=== PATIENT | female | born 1980 | race Caucasian/White ===

== ENCOUNTER 2017-01-10 20:49 | Emergency (ER) | payer OTHER ==
[~2017-01-10] VITALS: Ht 162.6 cm; Wt 66.5 kg
[~2017-01-10 20:49] MED LIST: CEPH-443 PO; IBUP-1542 PO
[2017-01-10 20:51] VITALS: Ht 162.6 cm; Wt 66.5 kg
[2017-01-10 21:54] LABS: URINE BLOOD (Dip) POC Negative (NEGATIVE)
--- NOTE | 2017-01-10 21:55 | ERA ---
ER Documentation Chief Complaint Date/Time DATE: 01/10/17 TIME: 21:53 Chief Complaint 14 wks , pelvic pain radaiting to back today, denies bleeding HPI This is a otherwise healthy 36-year-old female presenting 16 weeks with pelvic pain and no bleeding. Has not taken any medications to relieve the symptoms. Has not had symptoms like this in her previous pregnancies. Denies any medical conditions or previous complications with the . Denies bleeding, fever, dysuria, nausea, vomiting, diarrhea, vaginal discharge, foul odor, change in fetus quickening, or identifiable patterns of symptoms. ROS All systems reviewed and are negative except as per history of present illness. Medications Home Meds Active Scripts Ibuprofen* (Ibuprofen*) 600 Mg Tablet, 600 MG PO Q6, #30 TAB Prov:SANDRA MORTENSEN PA-C 08/07/15 Cephalexin* (Keflex*) 500 Mg Capsule, 500 MG PO TID for 5 Days, CAP Prov:SUSAN SULLIVAN PA-C 12/29/14 Allergies Allergies: Coded Allergies: No Known Drug Allergy (Verified Allergy, Unknown, 02/08/08) PMhx/Soc History of Surgery: No Hx Neurological Disorder: No Hx Respiratory Disorders: No Hx Cardiac Disorders: No Hx Psychiatric Problems: No Hx Miscellaneous Medical Probl: No Hx Alcohol Use: No Hx Substance Use: No Hx Tobacco Use: No Smoking Status: Never smoker Physical Exam Vitals Vital Signs Date Time Temp Pulse Resp B/P Pulse Ox O2 Delivery O2 Flow Rate FiO2 01/10/17 20:51 97.7 82 20 120/67 100 Physical Exam Physical Const: Healthy-appearing. Well-nourished. Well-developed. No acute distress. Abd: Nontender pelvic area. Fundus palpated just above the umbilicus. Soft, non tender, non distended. No guarding, masses. Normal bowel sounds. No McBurney's point tenderness. Head: Normocephalic, Atraumatic. No sinus tenderness. Eyes: Non-injected; No scleral erythema, discharge or foreign body. EOMI and RONEN bilaterally. Ears: Normal External Ears, EACs clear, TM normal bilaterally without erythema. Nose: Normal nose without discharge, septal deviation, or sinus tenderness. Oral: No oral edema visualized. Mucous membranes moist and pink. Neck: No cervical lymphadenopathy, masses or goiter palpated. Full range of motion. Supple. Trachea midline. ~ No meningismus. Pulm: Good air movement in upper and lower respiratory tracts. No dyspnea, stridor, tripoding or drooling. Clear to auscultation bilaterally. Percussion unremarkable in all lung villalobos bilaterally. Cardio: Regular rate and rhythm; No murmurs, gallops or rubs auscultated. No JVD grossly observed. Radial and posterior tibial pulses 2+ bilaterally. No cyanosis. Capillary refill less than 2 seconds. MS: Normal motor strength, normal tone with gross examination. Skin: No petechiae or rashes. No ulcer, induration, jaundice. Good turgor. Back: No midline, flank or CVA tenderness. Ext: No cyanosis, edema or palpable cord. Normal movement of all extremities grossly observed. Neur: Awake, alert and oriented x3. Neurovascularly intact bilaterally. Psych: Active and alert. Normal Mood and Affect. Oriented x3. Result Diagram: 01/10/178 Results 24 hrs Laboratory Tests Test 01/10/17 21:53 01/10/17 21:58 01/10/17 22:07 Urine Color YELLOW Urine Clarity CLEAR Urine pH 5.0 Urine Specific [place] 1.028 Urine Ketones NEGATIVEmg/dL Urine Nitrite NEGATIVEmg/dL Urine Bilirubin NEGATIVEmg/dL Urine Urobilinogen 1+mg/dL Urine Leukocyte Esterase NEGATIVELeu/ul Urine Hemoglobin NEGATIVEmg/dL Urine Glucose 2+mg/dL Urine Total Protein NEGATIVEmg/dl Bedside Urine pH (LAB) 6.0 Bedside Urine Protein (LAB) Negative Bedside Urine Glucose (UA) 0.1% Bedside Urine Ketones (LAB) Negative Bedside Urine Blood Negative Bedside Urine Nitrite (LAB) Negative Bedside Urine Leukocyte Esterase (L Negative White Blood Count 7.410^3/ul Red Blood Count 3.6810^6/ul Hemoglobin 11.0g/dl Hematocrit 31.7% Mean Corpuscular Volume 86.1fl Mean Corpuscular Hemoglobin 29.9pg Mean Corpuscular Hemoglobin Concent 34.7g/dl Red Cell Distribution Width 13.6% Platelet Count 07966^3/UL Mean Platelet Volume 9.8fl Neutrophils % 60.8% Lymphocytes % 30.2% Monocytes % 7.0% Eosinophils % 1.4% Basophils % 0.3% Nucleated Red Blood Cells % 0.0/100WBC Neutrophils # 4.510^3/ul Lymphocytes # 2.210^3/ul Monocytes # 0.510^3/ul Eosinophils # 0.110^3/ul Basophils # 0.010^3/ul Nucleated Red Blood Cells # 0.010^3/ul Beta HCG, Quantitative 89449.0mIU/ml Current Medications Medications (Trade) Dose Ordered Sig/Ernie Route PRN Reason Start Time Stop Time Status Last Admin Dose Admin Acetaminophen (Tylenol Tab) 650 mg ONCE ONCE PO 01/10/17 22:00 01/10/17 22:01 DC 01/10/17 22:47 Procedures/MDM 16 weeks 36-year-old female patient is being evaluated and worked up for pelvic pain as described in the history and physical exam. My current differential diagnosis includes, but is not limited to, the following: pelvic inflammatory disease or other infection, nephrolithiasis, urinary tract infection, , placenta previa, vaginitis, etc. Patient was given 650 mg of acetaminophen p.o. The workup included CBC, CMP, type and screen, quantitative beta-hCG, urinalysis , urine culture, and an US. Labs and urine were unremarkable and showed no signs of infection. The US was read by the radiologist and given the following impression: IMPRESSION: 1. Single viable intrauterine gestation estimated at 14 weeks 2 days with the estimated date of delivery 07/09/2017. 2. Posterior grade 0 placenta without evidence of abruption. 3. Sonographically normal ovaries and adnexa. At this time, I have little suspicion for complete , inevitable , ectopic , placenta previa, infection, blood vessel rupture, or PPROM. The current most likely diagnosis is pelvic pain of unknown etiology with no threatening of the fetus at this time. I have spoke with the patient regarding their condition and future management. They have verbally responded that they understand their status and treatment plan. The patients vitals are stable, and their current condition is appropriate for discharge. The patient will be given discharge instructions with return precautions. Departure Diagnosis: Primary Impression: Pelvic pain complicating Condition: Stable Additional Instructions: Follow up with your [facility] in 2 days. Be sure to take todays test results ( provided within this packet) with you to your doctors appointment in 2 days. If you do not have an [facility], a handout of locations with contact information will be provided to you. Follow all the recommendations we have previously discussed and the following written recommendations: If symptoms change or worsen, return to the emergency department immediately. Do not put anything in your vagina. Do not have sex, douche, or use tampons; these actions may increase your risk for infection and miscarriage. Rest as directed. Do not exercise or engage in strenuous activities; such activities may cause labor or miscarriage. If you have any further questions, ask before you leave the hospital, or contact the medical provider managing your . CAROLYN BRADSHAW PA-C Jan 10, 2017 21:55
[2017-01-10] MEDS ORDERED: ACETAMINOPHEN 325 MG TAB PO ONE (22:00)
[2017-01-10 22:13] LABS: ADD SCAN DIFF NO
[2017-01-10 22:15] LABS: BASOPHILS % 0.3 % (0.0-2.0); EOSINOPHILS # 0.1 10^3/ul (0.0-0.5); EOSINOPHILS % 1.4 % (0.0-7.0); HEMATOCRIT 31.7 % (37.0-47.0); LYMPHOCYTES # 2.2 10^3/ul (0.8-2.9); LYMPHOCYTES % 30.2 % (15.0-51.0); MEAN CORPUSCULAR HEMOGLOBIN 29.9 pg (29.0-33.0); MEAN CORPUSCULAR HGB CONC 34.7 g/dl (32.0-37.0); MEAN CORPUSCULAR VOLUME 86.1 fl (82.0-101.0); MEAN PLATELET VOLUME 9.8 fl (7.4-10.4); MONOCYTE # 0.5 10^3/ul (0.3-0.9); NEUTROPHIL # 4.5 10^3/ul (1.6-7.5); NEUTROPHILS % 60.8 % (39.0-77.0); PLATELET COUNT 144 10^3/UL (140-415); RED BLOOD COUNT 3.68 10^6/ul (4.20-5.40); RED CELL DISTRIBUTION WIDTH 13.6 % (11.5-14.5); WHITE BLOOD COUNT 7.4 10^3/ul (4.8-10.8)
[2017-01-10 22:58] LABS: ADD UMIC NO; UR ASCORBIC ACID NEGATIVE (NEGATIVE); UR BILIRUBIN (Dip) NEGATIVE (NEGATIVE); UR BLOOD (Dip) NEGATIVE (NEGATIVE); UR CLARITY CLEAR (CLEAR); UR COLOR YELLOW (YELLOW); UR GLUCOSE (Dip) 2+ mg/dL (NEGATIVE); UR KETONES (Dip) NEGATIVE (NEGATIVE); UR LEUKOCYTE ESTERASE (Dip) NEGATIVE Leu/ul (NEGATIVE); UR NITRITE (Dip) NEGATIVE (NEGATIVE); UR SPECIFIC GRAVITY (Dip) 1.028 (1.003-1.030); UR TOTAL PROTEIN (Dip) NEGATIVE (NEGATIVE); UR UROBILINOGEN (Dip) 1+ mg/dL (NEGATIVE)
--- NOTE | 2017-01-10 23:12 | RADRPT ---
PROCEDURE: Obstetrical ultrasound greater than 14 weeks CLINICAL INDICATION: Pelvic pain TECHNIQUE: Real time sonographic imaging of the gravid uterus is performed transabdominally and mu ltiple static ribeiro scale and Doppler images are submitted for review as are measurements. The image s are reviewed on the PACS. COMPARISON: No relevant exams are available FINDINGS: There is a single living intrauterine gestation in variable presentation. The heart beat is e stimated at 150 bpm. The measurements are as follows: BPD:2.42 cm HC:9.09 cm AC:8.34 cm FL:1.41 cm Estimated gestational age is 14 weeks 2 days. The estimated date of delivery is 07/09/2017. The estimated weight is 96 grams. Placenta is posterior and grade 0. There is no evidence of placenta previa or abruption. The amniotic fluid is normal, the maximum vertical pocket estimated at 3.4 cm. Right ovarian size is normal measuring 2.9 x 2.6 x 1.7 cm demonstrating normal Doppler blood flow an d without evidence of right adnexal mass. Left ovarian size is normal measuring 2.7 x 1.9 x 1.7 cm demonstrating normal Doppler blood flow and without evidence of left adnexal mass. No evidence of free fluid RPTAT:HJJR IMPRESSION: 1. Single viable intrauterine gestation estimated at 14 weeks 2 days with the estimated date of deli very 07/09/2017. 2. Posterior grade 0 placenta without evidence of abruption. 3. Sonographically normal ovaries and adnexa. Physician Guy Date Time Electronically viewed and signed by Physician Guy on 01/10/2017 23:11 /
[2017-01-11 01:20] VITALS: BP 104/59; PULSE 67; RESP 16
== END 2017-01-11 01:22 | disposition home or self-care (01) ==
LOC: FTE 20:49
DX: O26.892 Other specified pregnancy related conditions, second trimester (principal); R10.2 Pelvic and perineal pain; Z3A.14 14 weeks gestation of pregnancy
CPT/HCPCS: 76805; 81003; 84702; 85025; 86900; 86901

== ENCOUNTER 2017-02-05 23:09 | Emergency (ER) | payer SELFPAY ==
[~2017-02-05] VITALS: Ht 154.9 cm; Wt 68.0 kg
[2017-02-05 23:29] VITALS: Ht 154.9 cm; Wt 68.0 kg
== END 2017-02-06 01:50 | disposition left against medical advice (07) ==
LOC: FTE 23:09
DX: Z53.21 Procedure and treatment not carried out due to patient leaving prior to being seen by health care provider (principal)

== ENCOUNTER 2017-02-09 23:38 | Emergency (ER) | payer OTHER ==
[~2017-02-09] VITALS: Ht 154.9 cm; Wt 68.5 kg
[2017-02-09 23:45] VITALS: Ht 154.9 cm; Wt 68.5 kg
[2017-02-10] MEDS ORDERED: ACETAMINOPHEN 325 MG TAB PO STA (03:22)
[2017-02-10] MEDS ORDERED: SOD CHLORIDE 0.9% 1,000 ML IV STA (03:22)
--- NOTE | 2017-02-10 04:20 | RADRPT ---
PROCEDURE: US OB. CLINICAL INDICATION: Vaginal bleeding, . Clinical estimate gestational age is 18 weeks 1 day with estimated date of delivery 07/13/2017. TECHNIQUE: Multiple sonographic images of the pelvis were obtained. The images were reviewed on a PACS workstation. COMPARISON: 01/10/2017 FINDINGS: There is a single live intrauterine gestation. Cardiac activity is present with 134 beats per minut e. There is a cephalic position. Measurements were made in order to determine age. The results are as follows: BPD =4.22 cm, 18 weeks 5 days HC =15.36 cm, 18 weeks 2 days AC =13.43 cm, 18 weeks 6 days FL =2.61 cm, 18 weeks 0 days. Estimated gestational age of approximately 18 weeks 3 days. The estimated date of delivery is 07/11/2017. The EFW = 240 g, 0 pounds 8 ounces, 64% . The placenta is posterior and grade 0. There is no evidence for an abruption. There is a normal amount of amniotic fluid with and maximum vertical pocket of 5 cm. IMPRESSION: Single live intrauterine gestation of approximately 18 weeks 3 days based on ultrasound measurements . The estimated date of delivery is 07/11/2017 . RPTAT: HJES .Herminio Tinoco MD, Date Time Electronically viewed and signed by .Herminio Tinoco MD, on 02/10/2017 04:19 .S/
[2017-02-10 04:47] LABS: BASOPHILS % 0.3 % (0.0-2.0); EOSINOPHILS # 0.1 10^3/ul (0.0-0.5); EOSINOPHILS % 1.5 % (0.0-7.0); HEMOGLOBIN 11.5 g/dl (12.0-16.0); LYMPHOCYTES # 2.7 10^3/ul (0.8-2.9); LYMPHOCYTES % 34.2 % (15.0-51.0); MEAN CORPUSCULAR HEMOGLOBIN 30.4 pg (29.0-33.0); MEAN CORPUSCULAR HGB CONC 34.8 g/dl (32.0-37.0); MEAN CORPUSCULAR VOLUME 87.3 fl (82.0-101.0); MEAN PLATELET VOLUME 10.8 fl (7.4-10.4); MONOCYTE # 0.6 10^3/ul (0.3-0.9); MONOCYTES % 7.1 % (0.0-11.0); NEUTROPHIL # 4.5 10^3/ul (1.6-7.5); NEUTROPHILS % 56.5 % (39.0-77.0); PLATELET COUNT 149 10^3/UL (140-415); RED BLOOD COUNT 3.78 10^6/ul (4.20-5.40); RED CELL DISTRIBUTION WIDTH 13.8 % (11.5-14.5); WHITE BLOOD COUNT 7.9 10^3/ul (4.8-10.8)
[2017-02-10 05:03] LABS: ADD UMIC YES; UR ASCORBIC ACID NEGATIVE (NEGATIVE); UR BILIRUBIN (Dip) NEGATIVE (NEGATIVE); UR BLOOD (Dip) 2+ mg/dL (NEGATIVE); UR CLARITY SLIGHTLY CLOUDY (CLEAR); UR COLOR YELLOW (YELLOW); UR GLUCOSE (Dip) NEGATIVE (NEGATIVE); UR KETONES (Dip) NEGATIVE (NEGATIVE); UR LEUKOCYTE ESTERASE (Dip) NEGATIVE Leu/ul (NEGATIVE); UR MUCUS MANY /HPF (NONE SEEN); UR NITRITE (Dip) NEGATIVE (NEGATIVE); UR RBC 1 /HPF (0-5); UR SPECIFIC GRAVITY (Dip) 1.024 (1.003-1.030); UR SQUAMOUS EPITHELIAL CELL FEW /HPF (FEW); UR TOTAL PROTEIN (Dip) NEGATIVE (NEGATIVE); UR UROBILINOGEN (Dip) 1+ mg/dL (NEGATIVE)
--- NOTE | 2017-02-10 05:41 | ERD ---
ER Documentation Chief Complaint Date/Time DATE: 02/10/17 TIME: 05:34 Chief Complaint vaginal bleeding x 4 days, states 18 weeks HPI This 18 week female 3 miscarriage reports vaginal bleeding pelvic pain with clots. She reports symptoms started 4 days ago, seen and treated at [facility] reports normal ultrasound findings, patient was told to follow-up with gynecology, patient states she called her assistant golf professional the following day who instructed her if symptoms continue to come to emergency department. Patient reports that symptoms have worsened. ROS All systems reviewed and are negative except as per history of present illness. Medications Home Meds Active Scripts Ibuprofen* (Ibuprofen*) 600 Mg Tablet, 600 MG PO Q6, #30 TAB Prov:SANDRA MORTENSEN PA-C 08/07/15 Cephalexin* (Keflex*) 500 Mg Capsule, 500 MG PO TID for 5 Days, CAP Prov:SUSNA SULLIVAN PA-C 12/29/14 Allergies Allergies: Coded Allergies: No Known Drug Allergy (Verified Allergy, Unknown, 02/09/17) PMhx/Soc Medical and Surgical Hx: pt denies Medical Hx, pt denies Surgical Hx History of Surgery: No Anesthesia Reaction: No Hx Neurological Disorder: No Hx Respiratory Disorders: No Hx Cardiac Disorders: No Hx Psychiatric Problems: No Hx Miscellaneous Medical Probl: No Hx Alcohol Use: No Hx Substance Use: No Hx Tobacco Use: No Physical Exam Vitals Vitals stable, triage notes reviewed Physical Exam Const: Well-appearing, well-hydrated, no acute Head: Atraumatic Eyes: Normal Conjunctiva, PERRLA, EOMI ENT: Normal External Ears, Nose and Mouth mucous membranes moist. Neck: Full range of motion..~ No meningismus. Resp: Respirations even and unlabored no respiratory distress Cardio: Abd: 's abdomen Back: Ext: Neur: Awake and alert Psych: Normal Mood and Affect Result Diagram: 02/10/17 0345 Results 24 hrs Laboratory Tests Test 02/10/17 03:40 02/10/17 03:45 Urine Color YELLOW Urine Clarity SLIGHTLY CLOUDY Urine pH 5.0 Urine Specific [place] 1.024 Urine Ketones NEGATIVEmg/dL Urine Nitrite NEGATIVEmg/dL Urine Bilirubin NEGATIVEmg/dL Urine Urobilinogen 1+mg/dL Urine Leukocyte Esterase NEGATIVELeu/ul Urine Microscopic RBC 1/HPF Urine Microscopic WBC 2/HPF Urine Squamous Epithelial Cells FEW/HPF Urine Mucus MANY/HPF Urine Hemoglobin 2+mg/dL Urine Glucose NEGATIVEmg/dL Urine Total Protein NEGATIVEmg/dl White Blood Count 7.910^3/ul Red Blood Count 3.7810^6/ul Hemoglobin 11.5g/dl Hematocrit 33.0% Mean Corpuscular Volume 87.3fl Mean Corpuscular Hemoglobin 30.4pg Mean Corpuscular Hemoglobin Concent 34.8g/dl Red Cell Distribution Width 13.8% Platelet Count 19432^3/UL Mean Platelet Volume 10.8fl Neutrophils % 56.5% Lymphocytes % 34.2% Monocytes % 7.1% Eosinophils % 1.5% Basophils % 0.3% Nucleated Red Blood Cells % 0.0/100WBC Neutrophils # 4.510^3/ul Lymphocytes # 2.710^3/ul Monocytes # 0.610^3/ul Eosinophils # 0.110^3/ul Basophils # 0.010^3/ul Nucleated Red Blood Cells # 0.010^3/ul Beta HCG, Quantitative 16298.0mIU/ml Current Medications Medications (Trade) Dose Ordered Sig/Ernie Route PRN Reason Start Time Stop Time Status Last Admin Dose Admin Sodium Chloride (NS) 1,000 ml @ 1,000 mls/hr Q1H STAT IV 02/10/17 03:22 02/10/17 04:21 DC 02/10/17 03:49 Acetaminophen (Tylenol Tab) 650 mg ONCE STAT PO 02/10/17 03:22 02/10/17 03:25 DC 02/10/17 03:33 Interpretation text CBC shows no evidence of hemorrhage or infection Urinalysis negative for evidence of infection . Procedures/MDM PROCEDURE: US OB. CLINICAL INDICATION: Vaginal bleeding, . Clinical estimate gestational age is 18 weeks 1 day with estimated date of delivery 07/13/2017. TECHNIQUE: Multiple sonographic images of the pelvis were obtained. The images were reviewed on a PACS workstation. COMPARISON: 01/10/2017 FINDINGS: There is a single live intrauterine gestation. Cardiac activity is present with 134 beats per minute. There is a cephalic position. Measurements were made in order to determine age. The results are as follows: BPD = 4.22 cm, 18 weeks 5 days HC = 15.36 cm, 18 weeks 2 days AC = 13.43 cm, 18 weeks 6 days FL = 2.61 cm, 18 weeks 0 days. Estimated gestational age of approximately 18 weeks 3 days. The estimated date of delivery is 07/11/2017. The EFW = 240 g, 0 pounds 8 ounces, 64% . The placenta is posterior and grade 0. There is no evidence for an abruption. There is a normal amount of amniotic fluid with and maximum vertical pocket of 5 cm. IMPRESSION: Single live intrauterine gestation of approximately 18 weeks 3 days based on ultrasound measurements. The estimated date of delivery is 07/11/2017 . RPTAT: HJES .Herminio Tinoco MD, MD Date Time Electronically viewed and signed by .Herminio Tinoco MD, MD on 02/10/2017 04:19 This 36-year-old female presents to emergency department for vaginal bleeding and clotting worsening over the last 4 days. Patient was seen and treated at [facility], patient states she was told ultrasound was normal as well as urinalysis. Patient followed up with a phone call to assistant golf professional who instructed her to return to emergency department for any change in symptoms. Patient is here today for increased bleeding, clots, and pain. Threatened miscarriage, OB ultrasound performed documenting: There is a single live intrauterine gestation. Cardiac activity is present with 134 beats per minute. There is a cephalic position. Estimated 18 weeks 3 days based on ultrasound measurements, beta quant 95922.0 this is normal for 18 weeks of . Patient will be discharged home instructions to follow-up with OB today. Tylenol as needed for cramping. I feel the patient is stable for discharge at this time. I have discussed results, examination findings, the treatment plan with the patient and family present prior to discharge. Indications for emergent reevaluation, side effects of medication were also discussed. All questions were answered. Patient verbalizes understanding and agrees with plan of care. Departure Diagnosis: Primary Impression: Vaginal bleeding in patient at less than 20 weeks gestation Additional Instructions: Thank you for for coming to [facility] for your care today. Please ask your nurse or provider if you have questions about your care today and do not leave until all your questions have been answered. Please use any medications given as directed and follow-up with your doctor (or the doctor you were referred to) in the next 2-3 days. If you do not have a primary care doctor [place] [facility] [place] You may also use motrin and tylenol as needed for fever and/or pain unless instructed otherwise by your provider or nurse. Indications for more urgent follow-up have been discussed, but you may return to the Emergency Department at ANY time for any worrisome or worsening symptoms. If you have abdominal pain, please know that no test or exam you received is perfect and you should follow up within 8 hours for continued pain. If you had any imaging studies today, such as an X-Ray or CT Scan, these studies will be reviewed later by a radiologist. You will be called if there are important findings that were not identified today, so make sure the contact information you provided at registration is correct. If you received any narcotic pain control medicine today, such as Vicodin, Morphine or Dilaudid, your coordination and judgment may be affected for a number of hours. Please do not drive or operate heavy machinery, and you may want someone to assist you at home. If you were given a prescription for narcotic medication, be aware that it is very addictive- use sparingly and only if necessary. MARCO LEONG Feb 10, 2017 05:41
== END 2017-02-10 06:55 | disposition home or self-care (01) ==
LOC: FTE 23:38
DX: O20.9 Hemorrhage in early pregnancy, unspecified (principal); R10.2 Pelvic and perineal pain; Z3A.18 18 weeks gestation of pregnancy
CPT/HCPCS: 36415; 76801; 81001; 84702; 85025; J7030; Z7502

== ENCOUNTER 2017-03-01 21:20 | Outpatient (CLI) | payer OTHER ==
[~2017-03-01] VITALS: Ht 154.9 cm; Wt 69.8 kg
[2017-03-01 23:02] VITALS: Ht 154.9 cm; Wt 69.8 kg
[2017-03-01 23:04] VITALS: BP 119/57; PULSE 81; RESP 18
[2017-03-01] MEDS ORDERED: FERR325C PO (23:08)
[2017-03-01] MEDS ORDERED: PRENAT PO (23:08)
[2017-03-01] MEDS ORDERED: DOCU-144 PO (23:09)
[2017-03-01 23:27] LABS: ADD UMIC NO; UR ASCORBIC ACID NEGATIVE (NEGATIVE); UR BILIRUBIN (Dip) NEGATIVE (NEGATIVE); UR BLOOD (Dip) NEGATIVE (NEGATIVE); UR CLARITY SLIGHTLY CLOUDY (CLEAR); UR COLOR STRAW (YELLOW); UR GLUCOSE (Dip) 1+ mg/dL (NEGATIVE); UR KETONES (Dip) NEGATIVE (NEGATIVE); UR LEUKOCYTE ESTERASE (Dip) NEGATIVE Leu/ul (NEGATIVE); UR NITRITE (Dip) NEGATIVE (NEGATIVE); UR RBC 0 /HPF (0-5); UR SPECIFIC GRAVITY (Dip) 1.008 (1.003-1.030); UR SQUAMOUS EPITHELIAL CELL FEW /HPF (FEW); UR TOTAL PROTEIN (Dip) NEGATIVE (NEGATIVE); UR UROBILINOGEN (Dip) NEGATIVE (NEGATIVE)
--- NOTE | 2017-03-01 23:37 | RADRPT ---
PROCEDURE: Limited OB ultrasound CLINICAL INDICATION: 36-year-old female. History of low-lying placenta. Evaluate amniotic fluid. TECHNIQUE: Sonographic evaluation to assess the amniotic fluid index was performed. Transabdomina l imaging of the gravid uterus was performed. COMPARISON: None. FINDINGS: Estimated due date July 13, 2017 Gestational age by JIMI 20 weeks 6 days A single live intrauterine in cephalic presentation is identified. The heart rate me asures 139 bpm. Amniotic fluid volume is normal. Maximum vertical pocket measures 7.5 cm. There is a posterior placenta, grade 0. Homogeneously echogenic. Inferior tip of placenta is 1.3 cm from internal os of cervix. Cervix is long and closed measuring 4 cm without internal funneling. IMPRESSION: Single live intrauterine in cephalic presentation. Normal amniotic fluid volume. Cervix is long and closed. Posterior low-lying placenta. Inferior tip of placenta is 1.3 cm from internal os of cervix. Recom mend repeat evaluation at approximately 27 weeks gestation. RPTAT: HCTS Physician Sarahy Date Time Electronically viewed and signed by Physician Sarahy on 03/01/2017 23:37 CS/
--- NOTE | 2017-03-02 03:02 | RADRPT ---
PROCEDURE: US OB. CLINICAL INDICATION: Pain. TECHNIQUE: Multiple sonographic images of the pelvis were obtained. Transabdominal imaging only w as performed. The images were reviewed on a PACS workstation. COMPARISON: 02/10/2017. FINDINGS: Single live intrauterine is identified. Cardiac activity is present with 131 beats per mi nute. There is a vertex presentation. Measurements: BPD = 21 weeks 5 days. HC = 21 weeks 4 days. AC = 21 weeks 4 days. FL = 21 weeks 0 days. Estimated gestational age of approximately 21 weeks 3 days. The estimated date of delivery is 07/10/2017. The EFW = 418 g which is at the 64th percentile. Limited evaluation of anatomy is without gross abnormality. The placenta is posterior. IMPRESSION: Single live intrauterine gestation of approximately 21 weeks 3 days. RPTAT: HMVK .Tian Bland MD, Date Time Electronically viewed and signed by .Tian Bland MD, on 03/02/2017 03:01 .K/
--- NOTE | 2017-03-02 03:41 | HP ---
Date/Time of Note Date/Time of Note DATE: 03/02/17 TIME: 03:39 OB - History Hx of Present Free Text/Dictation @20+wsk GA with lower abdominal pain Decreased appetite : 5 Para: 2 Care: Good Care Ultrasounds: Normal mid trimester US Obstetrical Complications: None Medical Complications: None Past Family/Social History * Past Medical, Surgical, Family and Obstetric Histories reviewed from chart. OB Admission Exam Vital Signs Vital Signs Vital Signs Date Time Temp Pulse Resp B/P Pulse Ox O2 Delivery O2 Flow Rate FiO2 03/01/17 23:04 98.1 81 18 119/57 Room Air Physical Exam Abdomen: Abnormal (lower abdominal tenderness) Extremities: Normal Effacement: 0% Membranes: Intact Heart Rate: 140's OB Assessment/Plan Reason for admission: observation Plan: Expectant Management Other plan: 1,Labs CBC and CMP 2.IV hydration 3.Abdominal ultrasound for R/o Appendicitis 4.Close Observation JOVANY ARECHIGA M.D. Mar 02, 2017 03:41
--- NOTE | 2017-03-02 04:25 | PN ---
Triage Information Date/Time Reason for visit: Abd/pelvic pain Weeks of Gestation 20 /Para 3/1 Objective Vital Signs Date Time Temp Pulse Resp B/P Pulse Ox O2 Delivery O2 Flow Rate FiO2 03/01/17 23:04 98.1 81 18 119/57 Room Air Heart Rate: 120's Results/Medications Results 24 hrs Laboratory Tests Test 03/01/17 22:29 03/01/17 22:50 Membranes Rupture NEGATIVE Urine Color STRAW Urine Clarity SLIGHTLY CLOUDY A Urine pH 7.0 Urine Specific [place] 1.008 Urine Ketones NEGATIVE Urine Nitrite NEGATIVE Urine Bilirubin NEGATIVE Urine Urobilinogen NEGATIVE Urine Leukocyte Esterase NEGATIVE Urine Microscopic RBC 0 Urine Microscopic WBC 1 Urine Squamous Epithelial Cells FEW Urine Hemoglobin NEGATIVE Urine Glucose 1+ H Urine Total Protein NEGATIVE Disposition: awaiting CBC, and U/S of abdomen and d/c home after the results come back in the morning. ANTHONY GOMEZ MD Mar 02, 2017 04:25
--- NOTE | 2017-03-02 07:50 | RADRPT ---
PROCEDURE: Right Upper Quadrant Ultrasound. CLINICAL INDICATION: abdominal pain TECHNIQUE: Multiple real-time images were acquired of the patient's right upper quadrant abdomen a nd retroperitoneum utilizing a high resolution transducer. COMPARISON: None FINDINGS: The liver measures 16.6 cm, and demonstrates mildly increased echogenicity. The main portal vein is patent with proper directional flow. There is no intrahepatic biliary ductal dilatation. The extrahe patic common bile duct measures 4 mm. The gallbladder is without stones, wall thickening, or pericholecystic fluid. The visualized pancreas is unremarkable. The right kidney measures 10.1 cm and demonstrates normal echotexture. There is mild right hydroneph rosis. The visualized abdominal aorta and IVC are grossly unremarkable. IMPRESSION: Mild hepatomegaly with mild fatty infiltration. No cholelithiasis or acute cholecystitis. Normal CBD. Mild right hydronephrosis. RPTAT: EE Physician Lisa Date Time Electronically viewed and signed by Physician Lisa on 03/02/2017 07:50 /
[2017-03-02 07:58] LABS: BASOPHILS % 0.3 % (0.0-2.0); EOSINOPHILS # 0.1 10^3/ul (0.0-0.5); EOSINOPHILS % 1.9 % (0.0-7.0); HEMATOCRIT 30.9 % (37.0-47.0); HEMOGLOBIN 10.4 g/dl (12.0-16.0); LYMPHOCYTES # 2.1 10^3/ul (0.8-2.9); LYMPHOCYTES % 29.1 % (15.0-51.0); MEAN CORPUSCULAR HEMOGLOBIN 29.6 pg (29.0-33.0); MEAN CORPUSCULAR HGB CONC 33.7 g/dl (32.0-37.0); MEAN PLATELET VOLUME 10.4 fl (7.4-10.4); MONOCYTE # 0.6 10^3/ul (0.3-0.9); MONOCYTES % 8.3 % (0.0-11.0); NEUTROPHIL # 4.4 10^3/ul (1.6-7.5); PLATELET COUNT 137 10^3/UL (140-415); RED BLOOD COUNT 3.51 10^6/ul (4.20-5.40); RED CELL DISTRIBUTION WIDTH 14.1 % (11.5-14.5); WHITE BLOOD COUNT 7.3 10^3/ul (4.8-10.8)
--- NOTE | 2017-03-02 09:13 | TRIAGE ---
OB Triage Datetime Report Generated by CPN: 03/02/2017 09:13 Datetime: 03/02/2017 08:52 Stage of : OB Triage Datetime: 03/02/2017 07:20 Labor Evaluation Frequency: 0 Monitor Mode: External Resting Tone [place]: Relaxed Comments: OFF DUE TO GESTATIONAL AGE Pain Assessment Pain Scale: 6 Pain Presence: Intermittent Pain Type: Cramping Pain Goal: 3 Datetime: 03/02/2017 06:30 Stage of : OB Triage Monitor Mode: External Resting Tone [place]: Relaxed Pain Assessment Comments: Pt sleeping. No s/s of pain/discomfort noted Datetime: 03/02/2017 05:30 Labor Evaluation Frequency: 0 Monitor Mode: External Resting Tone [place]: Relaxed Datetime: 03/02/2017 04:30 Labor Evaluation Frequency: 0 Monitor Mode: External Resting Tone [place]: Relaxed Datetime: 03/02/2017 04:21 Stage of : OB Triage Datetime: 03/02/2017 04:02 Stage of : OB Triage Datetime: 03/02/2017 03:55 Stage of : OB Triage Datetime: 03/02/2017 03:30 Labor Evaluation Frequency: 0 Monitor Mode: External Resting Tone [place]: Relaxed Datetime: 03/02/2017 02:31 Labor Evaluation Frequency: 0 Monitor Mode: External Resting Tone [place]: Relaxed Datetime: 03/02/2017 01:30 Labor Evaluation Frequency: 0 Monitor Mode: External Resting Tone [place]: Relaxed Datetime: 03/02/2017 01:22 Stage of : OB Triage Datetime: 03/02/2017 00:30 Labor Evaluation Frequency: 0 Monitor Mode: External Resting Tone [place]: Relaxed Datetime: 03/01/2017 23:30 Labor Evaluation Frequency: 0 Monitor Mode: External Resting Tone [place]: Relaxed Datetime: 03/01/2017 23:25 EGA: 21.0 Datetime: 03/01/2017 23:11 Monitor Mode: External Datetime: 03/01/2017 23:04 Stage of : OB Triage Datetime: 03/01/2017 22:59 Stage of : OB Triage Datetime: 03/01/2017 22:44 Stage of : OB Triage Datetime: 03/01/2017 22:30 Stage of : OB Triage Labor Evaluation Frequency: 0 Monitor Mode: External Resting Tone [place]: Relaxed Datetime: 03/01/2017 22:04 Stage of : OB Triage Datetime: 03/01/2017 22:02 Assessment Type: Triage Maternal Assessment Level of Consciousness: Fully Conscious DTR's/Clonus: DTRs 2+; No Clonus Headache: Denies Blurred Vision: No Respiratory Effort: Unlabored Breath Sounds, Left: Clear and Equal Breath Sounds, Right: Clear and Equal Nausea/Vomiting: Denies RUQ Epigastric Pain: Denies Lower Extremities Edema: None Degree: None Upper Extremities Edema: None Degree: None Facial Edema: None Fall Risk Assessment History of Falling: (0) No Secondary Diagnosis: (15) Yes (Annotations: LOW LYING PLACENTA ON BEDREST ) Ambulatory Aid: (0) Bedrest/Nurse Assist IV Therapy: (0) No Gait: (0) Normal/Bedrest/Immobile Mental Status: (0) Oriented to Own Ability Fall Score: 15 Fall Risk Score Definition: No Risk: No action required Datetime: 03/01/2017 21:35 Time of Arrival: 03/02/2017 21:15 Arrived By: Wheelchair Arrived From: Home Chief Complaint: abd pain, spotting, leaking since yesterday Contractions: Denies/Absent Rupture of Membranes: Unsure Vaginal Bleeding: Scant Vaginal Discharge: Denies Recent Sexual Intercouse: Denies Abdominal Trauma: Not Applicable Patient Complaints: Back Pain; Other Time Provider Notified: 03/02/2017 21:35 Provider Notified: NATHAN Initial Plan: VS, DOPPLER, TOCO, ROM+, SPEC EXAM, PLACENTA LOCATION, CL, LENA, UA, URINE CULTURE Datetime: 03/01/2017 21:27 Heart Rate FHR Baseline Rate: 130 Monitor Mode: Doppler Comments: FHTs x 1 minute audible with hr from 130 to 145 bts/min
--- NOTE | 2017-03-02 18:27 | QN ---
Documentation Comment iup 20 weeks co ucx vss exam wnl us wnl a/p iup 20 weeks false labor ALINE SHELTON MD Mar 02, 2017 18:27
== END 2017-03-02 09:12 | disposition home or self-care (01) ==
LOC: OBT 21:20 → L-D 21:22 → OBT 03-02 09:12
PROVIDERS: ATTEND Obstetrics & Gynecology
DX: O62.9 Abnormality of forces of labor, unspecified (principal); Z3A.20 20 weeks gestation of pregnancy
CPT/HCPCS: 36415; 76705; 76815; 76817; 81001; 84112; 85025; 87086; Z7500; 81003; G0463

== ENCOUNTER 2017-03-15 18:13 | Outpatient (CLI) | payer OTHER ==
[~2017-03-15] VITALS: Ht 157.5 cm; Wt 68.4 kg
[~2017-03-15 18:13] MED LIST changes: -CEPH-443 PO; +DOCU-144 PO; +FERR325C PO; -IBUP-1542 PO; +PRENAT PO
[2017-03-15 18:29] VITALS: Ht 157.5 cm; Wt 68.4 kg
[2017-03-15 18:51] LABS: BASOPHILS % 0.3 % (0.0-2.0); EOSINOPHILS # 0.1 10^3/ul (0.0-0.5); EOSINOPHILS % 1.3 % (0.0-7.0); HEMATOCRIT 30.5 % (37.0-47.0); HEMOGLOBIN 10.7 g/dl (12.0-16.0); LYMPHOCYTES # 1.9 10^3/ul (0.8-2.9); LYMPHOCYTES % 27.7 % (15.0-51.0); MEAN CORPUSCULAR HEMOGLOBIN 30.2 pg (29.0-33.0); MEAN CORPUSCULAR HGB CONC 35.1 g/dl (32.0-37.0); MEAN CORPUSCULAR VOLUME 86.2 fl (82.0-101.0); MEAN PLATELET VOLUME 10.2 fl (7.4-10.4); MONOCYTE # 0.5 10^3/ul (0.3-0.9); MONOCYTES % 7.9 % (0.0-11.0); NEUTROPHILS % 62.5 % (39.0-77.0); PLATELET COUNT 160 10^3/UL (140-415); RED BLOOD COUNT 3.54 10^6/ul (4.20-5.40); RED CELL DISTRIBUTION WIDTH 13.1 % (11.5-14.5); WHITE BLOOD COUNT 6.7 10^3/ul (4.8-10.8)
--- NOTE | 2017-03-15 19:14 | RADRPT ---
PROCEDURE: Obstetrical ultrasound CLINICAL INDICATION: . OB ultrasound with fluid volume assessment. TECHNIQUE: Obstetrical ultrasound of the uterus for fluid volume assessment. Transabdomi nal imaging of the uterus was performed. COMPARISON: 03/15/2017 FINDINGS: The amniotic fluid index equals approximately 12.6 cm. IMPRESSION: Amniotic fluid index equals 12.6 cm. RPTAT: AADD .Felipe Mauricio MD, MD Date Time Electronically viewed and signed by .Felipe Mauricio MD, on 03/15/2017 19:14 .B/
[2017-03-15 19:48] LABS: ALBUMIN 3.3 g/dl (3.3-4.9); BILIRUBIN,INDIRECT 0.1 mg/dl (0-1.1); BILIRUBIN,TOTAL 0.1 mg/dl (0.2-1.3); CALCIUM 8.5 mg/dl (8.4-10.2); CREATININE 0.47 mg/dl (0.44-1.00); POTASSIUM 3.7 mmol/L (3.5-5.1); TOTAL PROTEIN 6.6 g/dl (6.1-8.1)
[2017-03-15 20:01] LABS: ADD UMIC YES; UR ASCORBIC ACID NEGATIVE (NEGATIVE); UR BILIRUBIN (Dip) NEGATIVE (NEGATIVE); UR BLOOD (Dip) 3+ mg/dL (NEGATIVE); UR CLARITY CLEAR (CLEAR); UR COLOR YELLOW (YELLOW); UR GLUCOSE (Dip) 1+ mg/dL (NEGATIVE); UR KETONES (Dip) NEGATIVE (NEGATIVE); UR LEUKOCYTE ESTERASE (Dip) NEGATIVE Leu/ul (NEGATIVE); UR NITRITE (Dip) NEGATIVE (NEGATIVE); UR RBC > 182 /HPF (0-5); UR SPECIFIC GRAVITY (Dip) 1.011 (1.003-1.030); UR TOTAL PROTEIN (Dip) 1+ mg/dl (NEGATIVE); UR UROBILINOGEN (Dip) NEGATIVE (NEGATIVE)
--- NOTE | 2017-03-15 20:26 | RADRPT ---
PROCEDURE: CERVICAL LENGTH ULTRASOUND CLINICAL INDICATION: Vaginal bleeding. TECHNIQUE: Trans-vaginal imaging of the cervical canal was performed utilizing ribeiro-scale imaging. Sagittal and transverse images were obtained. Trans-abdominal images were also obtained. The vinicius ges were reviewed on a PACS workstation. COMPARISON: None. FINDINGS: There is a single live intrauterine . heart rate is 139 beats per minute. Position is cephalic and placenta is posterior. There is no placenta previa. The cervix is closed with a length of 4.1 cm. IMPRESSION: 1. Cervical length is 4.1 cm. RPTAT: QQ .Herman Herring MD, MD Date Time Electronically viewed and signed by .Herman Herring MD, MD on 03/15/2017 20:26 .R/
[2017-03-15] MEDS ORDERED: LACTATED RINGER'S 1,000 ML IV ONE (21:00)
--- NOTE | 2017-03-15 21:41 | RADRPT ---
PROCEDURE: US OB. CLINICAL INDICATION: Vaginal bleeding. TECHNIQUE: Multiple sonographic images of the uterus were obtained. The images were revi ewed on a PACS workstation. COMPARISON: No prior studies are available for comparison. FINDINGS: There is a single live intrauterine gestation. heart rate is 36 beats per minute. Measurements were made in order to determine age. The results are as follows: BPD = 4.0 cm. HC = 20.64 cm. AC = 18.84 cm. FL = 4.29 cm. Estimated weight is 590 +/- 88 grams. LMP growth percentile is 70%. Menstrual age by ultrasound dates is 22 weeks 1 day. The estimated date of delivery is 07/18/2017. Position is cephalic and placenta is posterior and low-lying. There is no evidence for an abruption. IMPRESSION: 1. Single live intrauterine gestation of 22 weeks 1 day menstrual age by ultrasound dates. 2. The estimated date of delivery is 07/18/2017. 2. Placenta may be low lying. Follow-up ultrasound advised. RPTAT: QQ .Herman Herring MD, Date Time Electronically viewed and signed by .Herman Herring MD, on 03/15/2017 21:41 .R/
--- NOTE | 2017-03-15 22:28 | PN ---
Triage Information Date/Time Reason for visit: Vag spotting / bleeding Weeks of Gestation 22 weeks /Para Diabetes: none Hypertention: none Objective Heart Rate: 130's Contractions: None Results/Medications Result Diagram: 03/15/17 1830 03/15/17 1830 Results 24 hrs Laboratory Tests Test 03/15/17 18:30 03/15/17 19:30 White Blood Count 6.7 Red Blood Count 3.54 L Hemoglobin 10.7 L Hematocrit 30.5 L Mean Corpuscular Volume 86.2 Mean Corpuscular Hemoglobin 30.2 Mean Corpuscular Hemoglobin Concent 35.1 Red Cell Distribution Width 13.1 Platelet Count 160 Mean Platelet Volume 10.2 Neutrophils % 62.5 Lymphocytes % 27.7 Monocytes % 7.9 Eosinophils % 1.3 Basophils % 0.3 Nucleated Red Blood Cells % 0.0 Neutrophils # (Manual) 4.2 Lymphocytes # 1.9 Monocytes # 0.5 Eosinophils # 0.1 Basophils # 0.0 Nucleated Red Blood Cells # 0.0 Fibrinogen 407.0 Sodium Level 139 Potassium Level 3.7 Chloride Level 105 Carbon Dioxide Level 21 Anion Gap 17 H Blood Urea Nitrogen 7 Creatinine 0.47 Glucose Level 108 Calcium Level 8.5 Total Bilirubin 0.1 L Direct Bilirubin 0.00 Indirect Bilirubin 0.1 Aspartate Amino Transf (AST/SGOT) 27 Alanine Aminotransferase (ALT/SGPT) 29 Alkaline Phosphatase 59 Total Protein 6.6 Albumin 3.3 Globulin 3.30 H Albumin/Globulin Ratio 1.00 Amylase Level 69 Lipase 198 Urine Color YELLOW Urine Clarity CLEAR Urine pH 6.0 Urine Specific [place] 1.011 Urine Ketones NEGATIVE Urine Nitrite NEGATIVE Urine Bilirubin NEGATIVE Urine Urobilinogen NEGATIVE Urine Leukocyte Esterase NEGATIVE Urine Microscopic RBC > 182 H Urine Microscopic WBC 0 Urine Hemoglobin 3+ H Urine Glucose 1+ H Urine Total Protein 1+ H Imaging Results Cervical length 4.1 Placenta low lying Disposition: Discharge Assessment/Plan No active bleeding D/C home Follow up in clinic 03/18/2017. JAQUELIN DOWD MD Mar 15, 2017 22:28
--- NOTE | 2017-03-15 23:14 | TRIAGE ---
OB Triage Datetime Report Generated by CPN: 03/15/2017 23:13 Datetime: 03/15/2017 18:45 Assessment Type: Triage Maternal Assessment Level of Consciousness: Fully Conscious DTR's/Clonus: DTRs 2+; No Clonus Headache: Denies Blurred Vision: No Respiratory Effort: Unlabored; Regular Rhythm; Equal Expansion Breath Sounds, Left: Clear and Equal Breath Sounds, Right: Clear and Equal Nausea/Vomiting: Denies RUQ Epigastric Pain: Denies Lower Extremities Edema: None Degree: None Upper Extremities Edema: None Degree: None Facial Edema: None Fall Risk Assessment History of Falling: (0) No Secondary Diagnosis: (0) No Ambulatory Aid: (0) Bedrest/Nurse Assist IV Therapy: (0) No Gait: (0) Normal/Bedrest/Immobile Mental Status: (0) Oriented to Own Ability Fall Score: 0 Fall Risk Score Definition: No Risk: No action required Datetime: 03/02/2017 09:09 Time of Arrival: 03/15/2017 18:08 EGA: 22.6 Arrived By: Wheelchair Arrived From: Home Chief Complaint: Vaginal Bleeding Movement: Present Contractions: Denies/Absent Rupture of Membranes: Unsure Vaginal Bleeding: Heavy; Dark Red Vaginal Discharge: Present Recent Sexual Intercouse: Denies Abdominal Trauma: Not Applicable Patient Complaints: Cramping; Nausea Time Provider Notified: 03/15/2017 18:18 Provider Notified: Shamsiilda Initial Plan: Doppler, OB US: EFW, CL, LENA, placenta placement, Lab work for: CBC, Fibrinogen, Typ e + RH, CMP, LIPASE, AMYLASE Datetime: 03/01/2017 23:25 EGA: 21.0 Datetime: 03/01/2017 22:02 Fall Score: 15 Fall Risk Score Definition: No Risk: No action required
== END 2017-03-15 23:12 | disposition home or self-care (01) ==
LOC: L-D 18:13 → OBT 18:13
PROVIDERS: ATTEND Obstetrics & Gynecology
DX: O46.92 Antepartum hemorrhage, unspecified, second trimester (principal); Z3A.22 22 weeks gestation of pregnancy
CPT/HCPCS: 36415; 76815; 76817; 80053; 81001; 82150; 83690; 85025; 85384; 86900; 86901; 96360; 96361; J7120; Z7500; G0463

== ENCOUNTER 2017-04-01 19:18 | Outpatient (CLI) | payer OTHER ==
[~2017-04-01] VITALS: Ht 154.9 cm; Wt 71.3 kg
[2017-04-01] MEDS ORDERED: LACTATED RINGER'S 1,000 ML IV SCH (20:00)
[2017-04-01] MEDS ORDERED: TERBUTALINE 1 MG/ML INJ SC ONE (20:00)
[2017-04-01] MEDS ORDERED: LACTATED RINGER'S 1,000 ML IV ONE (20:00)
[2017-04-01 21:09] LABS: BASOPHILS % 0.3 % (0.0-2.0); EOSINOPHILS # 0.1 10^3/ul (0.0-0.5); EOSINOPHILS % 1.9 % (0.0-7.0); HEMATOCRIT 31.5 % (37.0-47.0); HEMOGLOBIN 10.6 g/dl (12.0-16.0); LYMPHOCYTES # 2.2 10^3/ul (0.8-2.9); LYMPHOCYTES % 29.1 % (15.0-51.0); MEAN CORPUSCULAR HEMOGLOBIN 29.2 pg (29.0-33.0); MEAN CORPUSCULAR HGB CONC 33.7 g/dl (32.0-37.0); MEAN CORPUSCULAR VOLUME 86.8 fl (82.0-101.0); MONOCYTE # 0.6 10^3/ul (0.3-0.9); MONOCYTES % 7.9 % (0.0-11.0); NEUTROPHIL # 4.5 10^3/ul (1.6-7.5); NEUTROPHILS % 60.5 % (39.0-77.0); PLATELET COUNT 156 10^3/UL (140-415); RED BLOOD COUNT 3.63 10^6/ul (4.20-5.40); RED CELL DISTRIBUTION WIDTH 12.9 % (11.5-14.5); WHITE BLOOD COUNT 7.5 10^3/ul (4.8-10.8)
[2017-04-01 21:22] LABS: ADD UMIC YES; UR AMORPHOUS CRYSTAL MANY /HPF (NONE SEEN); UR ASCORBIC ACID NEGATIVE (NEGATIVE); UR BACTERIA FEW /HPF (NONE SEEN); UR BILIRUBIN (Dip) NEGATIVE (NEGATIVE); UR BLOOD (Dip) NEGATIVE (NEGATIVE); UR CLARITY CLOUDY (CLEAR); UR COLOR YELLOW (YELLOW); UR GLUCOSE (Dip) 2+ mg/dL (NEGATIVE); UR KETONES (Dip) NEGATIVE (NEGATIVE); UR LEUKOCYTE ESTERASE (Dip) NEGATIVE Leu/ul (NEGATIVE); UR MUCUS FEW /HPF (NONE SEEN); UR NITRITE (Dip) NEGATIVE (NEGATIVE); UR RBC 0 /HPF (0-5); UR SPECIFIC GRAVITY (Dip) 1.014 (1.003-1.030); UR SQUAMOUS EPITHELIAL CELL FEW /HPF (FEW); UR TOTAL PROTEIN (Dip) NEGATIVE (NEGATIVE); UR UROBILINOGEN (Dip) NEGATIVE (NEGATIVE)
[2017-04-01 21:45] VITALS: BP 108/61; PULSE 84; RESP 18
--- NOTE | 2017-04-01 22:21 | RADRPT ---
PROCEDURE: Ultrasound OB placenta. CLINICAL INDICATION: Spotting. Pre-term labor. TECHNIQUE: Trans-vaginal imaging of the placenta was performed utilizing ribeiro-scale imaging. Sagi ttal and transverse images were obtained. Trans-abdominal images were also obtained. The images we re reviewed on a PACS workstation. COMPARISON: 03/15/2017. FINDINGS: The cervix length measures 3.4 cm. There is a single live intrauterine . heart rate is 133 beats per minute. Position is cephalic and placenta is posterior, grade 1. placenta previa is noted transvaginally. IMPRESSION: 1. Placenta previa. 2. Cervical length measures 3.4 cm. RPTAT: HFN .Frannie Milian MD, Date Time Electronically viewed and signed by .Frannie Milian MD, MD on 04/01/2017 22:21 .N/
[2017-04-02] MEDS ORDERED: ACETAMINOPHEN 500 MG TAB PO ONE (00:33)
--- NOTE | 2017-04-02 02:05 | TRIAGE ---
OB Triage Datetime Report Generated by CPN: 04/02/2017 02:05 Datetime: 04/02/2017 00:44 Stage of : OB Triage Datetime: 04/02/2017 00:36 Stage of : OB Triage Datetime: 04/02/2017 00:07 Heart Rate FHR Baseline Rate: 140 Monitor Mode: External US Variability: Moderate 6-25 bpm Datetime: 04/01/2017 23:41 Stage of : OB Triage Datetime: 04/01/2017 23:30 Stage of : OB Triage Quality: Mild Resting Tone [place]: Relaxed Heart Rate FHR Baseline Rate: 140 Monitor Mode: External US Variability: Moderate 6-25 bpm Category: Category I Pain Assessment Pain Scale: 4 Pain Presence: Intermittent Pain Type: Cramping Pain Location: Abdomen; Back Datetime: 04/01/2017 22:20 Stage of : OB Triage Monitor Mode: External Duration (sec)2399: 10-30sec Quality: Mild Pattern: Normal: <= 5 Contractions in 10 Minutes Resting Tone [place]: Relaxed Heart Rate FHR Baseline Rate: 135 Monitor Mode: External US Variability: Moderate 6-25 bpm Pain Assessment Pain Scale: 6 Pain Presence: Intermittent Pain Type: Cramping Pain Location: Abdomen Datetime: 04/01/2017 20:54 Stage of : OB Triage Monitor Mode: External Duration (sec)2399: 10-20sec Quality: Mild Pattern: Normal: <= 5 Contractions in 10 Minutes Resting Tone [place]: Relaxed Heart Rate FHR Baseline Rate: 135 Monitor Mode: External US Variability: Moderate 6-25 bpm Accelerations: 10X10 Pain Assessment Pain Scale: 6 Pain Presence: Intermittent Pain Type: Cramping Pain Location: Abdomen; Back Datetime: 04/01/2017 20:34 Vaginal Exam Membrane Status: Intact Datetime: 04/01/2017 19:45 Stage of : OB Triage Datetime: 04/01/2017 19:30 Time of Arrival: 04/01/2017 18:52 EGA: 25.2 Arrived By: Wheelchair Arrived From: Home Chief Complaint: hx low lying placenta c/o abd carmping x 2 days and since 1200 today and spo tting pink scant discharge since 1600 Movement: Present Contractions: Irregular Time Contractions Began: 04/01/2017 12:00 Contractions: q5 Rupture of Membranes: Denies Vaginal Bleeding: Scant Vaginal Discharge: Present Recent Sexual Intercouse: Denies Abdominal Trauma: Not Applicable Patient Complaints: Cramping Time Provider Notified: 04/01/2017 19:45 Provider Notified: Dr Arnett Initial Plan: UA,CBC,IV BOLUS, terb after bolus if needed, CVL,placenta Datetime: 04/01/2017 19:23 Stage of : OB Triage Maternal Assessment Level of Consciousness: Fully Conscious Headache: Denies Blurred Vision: No Respiratory Effort: Unlabored Nausea/Vomiting: Denies RUQ Epigastric Pain: Denies Facial Edema: None Labor Evaluation Frequency: 2-5 Monitor Mode: External Duration (sec)2399: 10-20sec Quality: Mild Pattern: Normal: <= 5 Contractions in 10 Minutes Resting Tone [place]: Relaxed Heart Rate FHR Baseline Rate: 140 Monitor Mode: External US FHR Baseline Changes: No Baseline Change Category: Category I Pain Assessment Pain Scale: 6 Pain Presence: Intermittent Pain Type: Cramping Pain Location: Abdomen Datetime: 03/15/2017 18:45 Fall Risk Assessment Fall Score: 0 Fall Risk Score Definition: No Risk: No action required Datetime: 03/02/2017 09:09 EGA: 22.6 Initial Plan: Doppler, OB US: EFW, CL, LENA, placenta placement, Lab work for: CBC, Fibrinogen, Typ e + RH, CMP, LIPASE, AMYLASE; IV BOLUS HYDRATION Datetime: 03/01/2017 23:25 EGA: 21.0 Datetime: 03/01/2017 22:02 Fall Risk Assessment Fall Score: 15 Fall Risk Score Definition: No Risk: No action required
--- NOTE | 2017-04-02 02:59 | PN ---
Triage Information Date/Time April 01, 2017 Reason for visit: Uterine contractions Weeks of Gestation 25 weeks and 2 days /Para Diabetes: none Hypertention: none Additional information 36-year-old with IUP at 25 weeks and 2 days with care with Dr. Arnett presented with complaint of low back pain and cramp and scanned pink vaginal discharge. She was seen in triage about 2 and half weeks ago when she had an episode of vaginal bleeding. Had an ultrasound transabdominally that did not show any evidence of previa or abruption. Patient denies any leaking of fluid, decreased movement. Objective Vital Signs Date Time Temp Pulse Resp B/P Pulse Ox O2 Delivery O2 Flow Rate FiO2 04/01/17 21:45 98.5 84 18 108/61 Room Air Intake and Output 04/01/17 04/01/17 04/02/17 15:00 23:00 07:00 Intake Total 1000 ml 1000 ml Balance 1000 ml 1000 ml Heart Rate: 120's Contractions: >10 Minutes Apart Exam Appears: Alert and oriented 4. Patient does not appear to be in any acute distress. Abdomen: Soft, gravid, fundal height consistent with gestational age. No tenderness. Occasional contractions seen on the monitor, received a bolus of IV fluid as well as a dose of terbutaline. Transvaginal ultrasound showed evidence of placenta previa. Had been observed for 2 hours in triage and there was no evidence of vaginal bleeding Results/Medications Result Diagram: 04/01/172053 Results 24 hrs Laboratory Tests Test 04/01/17 19:00 04/01/17 20:54 Urine Color YELLOW Urine Clarity [place] A Urine pH 7.0 Urine Specific [place] 1.014 Urine Ketones NEGATIVE Urine Nitrite NEGATIVE Urine Bilirubin NEGATIVE Urine Urobilinogen NEGATIVE Urine Leukocyte Esterase NEGATIVE Urine Microscopic RBC 0 Urine Microscopic WBC 0 Urine Squamous Epithelial Cells FEW Urine Amorphous Crystals MANY A Urine Bacteria FEW A Urine Mucus FEW A Urine Hemoglobin NEGATIVE Urine Glucose 2+ H Urine Total Protein NEGATIVE White Blood Count 7.5 Red Blood Count 3.63 L Hemoglobin 10.6 L Hematocrit 31.5 L Mean Corpuscular Volume 86.8 Mean Corpuscular Hemoglobin 29.2 Mean Corpuscular Hemoglobin Concent 33.7 Red Cell Distribution Width 12.9 Platelet Count 156 Mean Platelet Volume 10.0 Neutrophils % 60.5 Lymphocytes % 29.1 Monocytes % 7.9 Eosinophils % 1.9 Basophils % 0.3 Nucleated Red Blood Cells % 0.0 Neutrophils # 4.5 Lymphocytes # 2.2 Monocytes # 0.6 Eosinophils # 0.1 Basophils # 0.0 Nucleated Red Blood Cells # 0.0 Imaging Results PROCEDURE: Ultrasound OB placenta. CLINICAL INDICATION: Spotting. Pre-term labor. TECHNIQUE: Trans-vaginal imaging of the placenta was performed utilizing ribeiro- scale imaging. Sagittal and transverse images were obtained. Trans-abdominal images were also obtained. The images were reviewed on a PACS workstation. COMPARISON: 03/15/2017. FINDINGS: The cervix length measures 3.4 cm. There is a single live intrauterine . heart rate is 133 beats per minute. Position is cephalic and placenta is posterior, grade 1. placenta previa is noted transvaginally. IMPRESSION: 1. Placenta previa. 2. Cervical length measures 3.4 cm. Disposition: Discharge Assessment/Plan 25 weeks and 2 days Vaginal bleeding RH Positive Placenta previa Findings discussed with the patient. Patient symptoms resolved after she received IV hydration and a dose of terbutaline. She was comfortable and was a stable to be discharged home with a strict pelvic rest and bedrest and follow- up within 24 hours with her primary OB Dr. Arnett. Patient verbalized understanding all above discussion. Strict labor precaution and kick count and bleeding precaution was provided to the patient. All systems were answered to the patient's best satisfaction. DYLON ELLIS MD Apr 02, 2017 02:59
== END 2017-04-02 01:00 | disposition home or self-care (01) ==
LOC: OBT 19:18 → L-D 19:18 → OBT 04-02 01:00
PROVIDERS: ATTEND Obstetrics & Gynecology
DX: O62.9 Abnormality of forces of labor, unspecified (principal); O44.02 Complete placenta previa NOS or without hemorrhage, second trimester; O20.8 Other hemorrhage in early pregnancy; O36.0920 Maternal care for other rhesus isoimmunization, second trimester, not applicable or unspecified; Z3A.25 25 weeks gestation of pregnancy
CPT/HCPCS: 36415; 76815; 76817; 81001; 85025; 96360; 96361; 96372; J3105; J7120; Z7500; Z7610; G0463

== ENCOUNTER 2017-04-06 09:08 | Outpatient (CLI) | payer OTHER ==
[~2017-04-06] VITALS: Ht 154.9 cm; Wt 72.6 kg
[~2017-04-06 09:08] MED LIST changes: -DOCU-144 PO
[2017-04-06 09:41] VITALS: Ht 154.9 cm; Wt 72.6 kg
[2017-04-06 09:42] VITALS: BP 108/62; PULSE 90; RESP 18
[2017-04-06] MEDS ORDERED: CEPH250S33 PO (09:43)
[2017-04-06 11:32] LABS: ADD UMIC NO; UR ASCORBIC ACID NEGATIVE (NEGATIVE); UR BILIRUBIN (Dip) NEGATIVE (NEGATIVE); UR BLOOD (Dip) NEGATIVE (NEGATIVE); UR CLARITY CLEAR (CLEAR); UR COLOR YELLOW (YELLOW); UR GLUCOSE (Dip) 1+ mg/dL (NEGATIVE); UR KETONES (Dip) NEGATIVE (NEGATIVE); UR LEUKOCYTE ESTERASE (Dip) NEGATIVE Leu/ul (NEGATIVE); UR NITRITE (Dip) NEGATIVE (NEGATIVE); UR SPECIFIC GRAVITY (Dip) 1.016 (1.003-1.030); UR TOTAL PROTEIN (Dip) NEGATIVE (NEGATIVE); UR UROBILINOGEN (Dip) 1+ mg/dL (NEGATIVE)
--- NOTE | 2017-04-06 13:30 | TRIAGE ---
OB Triage Datetime Report Generated by CPN: 04/06/2017 13:29 Datetime: 04/06/2017 12:43 Stage of : OB Triage Datetime: 04/06/2017 12:24 Labor Evaluation Frequency: 0 Monitor Mode: External Resting Tone [place]: Relaxed Heart Rate FHR Baseline Rate: 135 Monitor Mode: External US Variability: Moderate 6-25 bpm Decelerations: None Category: Category I Pain Assessment Pain Scale: 2 Pain Presence: Constant Pain Type: Pressure Pain Goal: 3 Pain Relief Measures: Comfort Measures Datetime: 04/06/2017 11:32 Labor Evaluation Frequency: 0 Monitor Mode: External Pattern: Normal: <= 5 Contractions in 10 Minutes Resting Tone [place]: Relaxed Heart Rate FHR Baseline Rate: 135 Monitor Mode: External US Variability: Moderate 6-25 bpm Decelerations: None Category: Category I Pain Assessment Pain Scale: 3 Pain Presence: Constant Pain Type: Pressure Pain Location: Perineum Pain Goal: 3 Pain Relief Measures: Comfort Measures Datetime: 04/06/2017 10:37 Labor Evaluation Frequency: 0 Monitor Mode: External Pattern: Normal: <= 5 Contractions in 10 Minutes Resting Tone [place]: Relaxed Heart Rate FHR Baseline Rate: 135 Monitor Mode: External US Variability: Moderate 6-25 bpm Decelerations: None Category: Category I Pain Assessment Pain Scale: 2 Pain Presence: Constant Pain Type: Pressure Pain Goal: 3 Pain Relief Measures: Comfort Measures Datetime: 04/06/2017 09:58 Stage of : OB Triage Datetime: 04/06/2017 09:37 Stage of : OB Triage Assessment Type: Triage Maternal Assessment Level of Consciousness: Fully Conscious DTR's/Clonus: DTRs 2+; No Clonus Headache: Denies Blurred Vision: No Respiratory Effort: Unlabored; Regular Rhythm; Equal Expansion Breath Sounds, Left: Clear and Equal Breath Sounds, Right: Clear and Equal Nausea/Vomiting: Denies RUQ Epigastric Pain: Denies Facial Edema: None Temperature Route: Axillary Fall Risk Assessment History of Falling: (0) No Secondary Diagnosis: (0) No Ambulatory Aid: (0) Bedrest/Nurse Assist IV Therapy: (0) No Gait: (0) Normal/Bedrest/Immobile Mental Status: (0) Oriented to Own Ability Fall Score: 0 Fall Risk Score Definition: No Risk: No action required Labor Evaluation Frequency: 0 Monitor Mode: External Pattern: Normal: <= 5 Contractions in 10 Minutes Resting Tone [place]: Relaxed Heart Rate FHR Baseline Rate: 135 Monitor Mode: External US Variability: Moderate 6-25 bpm Decelerations: None Pain Assessment Pain Scale: 4 Pain Presence: Constant Pain Type: Pressure Pain Location: Perineum Pain Goal: 3 Pain Relief Measures: Comfort Measures Datetime: 04/06/2017 09:35 Time of Arrival: 04/06/2017 09:00 EGA: 26.0 Arrived By: Ambulatory Arrived From: Home Chief Complaint: C/O VAGINAL PRESSURE, PRESCRIBED KEFLEX 3 DAYS AGO FOR UTI, HAS NOT BEEN TAKING M EDS PRESCRIBED. WAS INSTRUCTED TO WEAR ABDOMINAL BINDER AND HAS NOT BEEN WEARING. DENIES BLEED ING, LEAKING OR UC'S, JUST C/O OF VAGINAL PRESSURE Movement: Present Contractions: Denies/Absent Rupture of Membranes: Denies Vaginal Bleeding: None Vaginal Discharge: Denies Recent Sexual Intercouse: Denies Abdominal Trauma: Not Applicable Patient Complaints: Other Additional Patient Complaints: HX OF LOW LYING PLACENTA Time Provider Notified: 04/06/2017 10:00 Provider Notified: JASON Initial Plan: MONITOR, U/A Datetime: 04/01/2017 19:30 EGA: 25.2 Datetime: 03/15/2017 18:45 Fall Score: 0 Fall Risk Score Definition: No Risk: No action required Datetime: 03/02/2017 09:09 EGA: 22.6 Datetime: 03/01/2017 23:25 EGA: 21.0 Datetime: 03/01/2017 22:02 Fall Score: 15 Fall Risk Score Definition: No Risk: No action required
--- NOTE | 2017-04-06 18:37 | QN ---
Documentation Comment iup 26 weeks co of uxc vss exam wnl a/p iup 26 weeks fasle labor [place] ALINE SHELTON MD Apr 06, 2017 18:37
== END 2017-04-06 12:59 | disposition home or self-care (01) ==
LOC: L-D 09:08 → OBT 09:08 → L-D 09:12 → OBT 12:59
PROVIDERS: ATTEND Obstetrics & Gynecology
DX: O47.02 False labor before 37 completed weeks of gestation, second trimester (principal); Z3A.26 26 weeks gestation of pregnancy
CPT/HCPCS: 81003; Z7500; G0463

== ENCOUNTER 2017-04-14 14:09 | Outpatient (CLI) | payer OTHER ==
[~2017-04-14] VITALS: Ht 154.9 cm; Wt 73.3 kg
[~2017-04-14 14:09] MED LIST changes: +CEPH250S33 PO
[2017-04-14] MEDS ORDERED: CEPH500C PO (14:32)
[2017-04-14 14:33] VITALS: BP 107/56; PULSE 88; RESP 18; Ht 154.9 cm; Wt 73.3 kg
[2017-04-14] MEDS ORDERED: CEFAZOLIN 2 GM/50 ML (PMX) 50 ML IVPB ONE (16:30)
--- NOTE | 2017-04-14 16:45 | RADRPT ---
PROCEDURE: US OB biophysical profile. CLINICAL INDICATION: decreased movements, labor TECHNIQUE: Multiple sonographic images of the pelvis were obtained. The images were reviewed on a PACS workstation. COMPARISON: 04/01/2017 FINDINGS: There is a single viable intrauterine gestation. Cardiac activity is present with 141 beats per min [place]. There is a vertex presentation. The placenta is posterior. There is no evidence of placental abruption. There is at least partial placenta previa. There is a normal amount of amniotic fluid with an LENA = 18.2 cm. Biophysical profile: movement 2/2 tone 2/2. breathing 2/2 LENA 2/2 Total 02/24 RPTAT: AA . IMPRESSION: Normal biophysical profile. Posterior placenta with at least partial previa. . .Chuy Acuna MD, Date Time Electronically viewed and signed by .Chuy Acuna MD, MD on 04/14/2017 16:44 .S/
[2017-04-14 17:34] LABS: ADD UMIC NO; UR ASCORBIC ACID 40 mg/dL (NEGATIVE); UR BILIRUBIN (Dip) NEGATIVE (NEGATIVE); UR BLOOD (Dip) NEGATIVE (NEGATIVE); UR CLARITY CLEAR (CLEAR); UR COLOR YELLOW (YELLOW); UR GLUCOSE (Dip) 1+ mg/dL (NEGATIVE); UR KETONES (Dip) NEGATIVE (NEGATIVE); UR LEUKOCYTE ESTERASE (Dip) NEGATIVE Leu/ul (NEGATIVE); UR NITRITE (Dip) NEGATIVE (NEGATIVE); UR SPECIFIC GRAVITY (Dip) 1.014 (1.003-1.030); UR TOTAL PROTEIN (Dip) NEGATIVE (NEGATIVE); UR UROBILINOGEN (Dip) 1+ mg/dL (NEGATIVE)
[2017-04-14] MEDS ORDERED: LACTATED RINGER'S 1,000 ML IV SCH (18:00)
--- NOTE | 2017-04-14 19:57 | RADRPT ---
PROCEDURE: CERVICAL LENGTH ULTRASOUND CLINICAL INDICATION: labor at 27 weeks gestational age. TECHNIQUE: Trans-vaginal imaging of the cervical canal was performed utilizing ribeiro-scale imaging. Sagittal and transverse images were obtained. Trans-abdominal images were also obtained. The vinicius ges were reviewed on a PACS workstation. COMPARISON: None. FINDINGS: There is a single live intrauterine . heart rate is 144 beats per minute. Position is cephalic and placenta is posterior grade II. There is no placenta previa. The cervix is closed with a length of 4.2 cm. IMPRESSION: 1. Cervical length is 4.2 cm. RPTAT: QQ .Herman Herring MD, MD Date Time Electronically viewed and signed by .Herman Herring MD, on 04/14/2017 19:57 .R/
--- NOTE | 2017-04-14 20:54 | PN ---
Triage Information Date/Time Reason for visit: Abd/pelvic pain Weeks of Gestation 27 weeks /Para Diabetes: none Hypertention: none Objective Vital Signs Date Time Temp Pulse Resp B/P Pulse Ox O2 Delivery O2 Flow Rate FiO2 04/14/17 14:33 98.2 88 18 107/56 95 Room Air Heart Rate: 130's Heart Rate Comments Appropriate for GA Contractions: None Results/Medications Results 24 hrs Laboratory Tests Test 04/14/17 16:00 Urine Color YELLOW Urine Clarity CLEAR Urine pH 7.0 Urine Specific [place] 1.014 Urine Ketones NEGATIVE Urine Nitrite NEGATIVE Urine Bilirubin NEGATIVE Urine Urobilinogen 1+ H Urine Leukocyte Esterase NEGATIVE Urine Hemoglobin NEGATIVE Urine Glucose 1+ H Urine Total Protein NEGATIVE Medications Current Medications Lactated Ringer's (Lr) 1,000 ml @ 125 mls/hr Q8H IV Last administered on t 17:55; Admin Dose 125 MLS/HR; Start 04/14/17 at 18:00 Imaging Results Cervical length 4.2 cm Disposition: Discharge Assessment/Plan After rest patient feels better. D/C home. JAQUELIN DOWD MD Apr 14, 2017 20:54
== END 2017-04-14 21:00 | disposition home or self-care (01) ==
LOC: OBT 14:09 → L-D 14:09 → OBT 21:00
PROVIDERS: ATTEND Obstetrics & Gynecology
DX: O26.892 Other specified pregnancy related conditions, second trimester (principal); Z3A.27 27 weeks gestation of pregnancy
CPT/HCPCS: 76817; 76818; 81003; J0690; J7120; Z7500; G0463

== ENCOUNTER 2017-04-17 15:37 | Outpatient (CLI) | payer OTHER ==
[~2017-04-17] VITALS: Ht 154.9 cm; Wt 73.1 kg
[~2017-04-17 15:37] MED LIST changes: -CEPH250S33 PO; +CEPH500C PO; -FERR325C PO
[2017-04-17 16:59] LABS: ADD UMIC YES; UR ASCORBIC ACID NEGATIVE (NEGATIVE); UR BILIRUBIN (Dip) NEGATIVE (NEGATIVE); UR BLOOD (Dip) 3+ mg/dL (NEGATIVE); UR CLARITY SLIGHTLY CLOUDY (CLEAR); UR COLOR YELLOW (YELLOW); UR GLUCOSE (Dip) 1+ mg/dL (NEGATIVE); UR KETONES (Dip) NEGATIVE (NEGATIVE); UR LEUKOCYTE ESTERASE (Dip) NEGATIVE Leu/ul (NEGATIVE); UR NITRITE (Dip) NEGATIVE (NEGATIVE); UR RBC > 182 /HPF (0-5); UR SPECIFIC GRAVITY (Dip) 1.018 (1.003-1.030); UR SQUAMOUS EPITHELIAL CELL FEW /HPF (FEW); UR TOTAL PROTEIN (Dip) 1+ mg/dl (NEGATIVE); UR UROBILINOGEN (Dip) 2+ mg/dL (NEGATIVE)
--- NOTE | 2017-04-17 17:21 | RADRPT ---
PROCEDURE: US OB biophysical profile. CLINICAL INDICATION: evaluation, vaginal bleeding TECHNIQUE: Multiple sonographic images of the pelvis were obtained. The images were reviewed on a PACS workstation. COMPARISON: Obstetrical ultrasound from 04/14/2017 FINDINGS: The cervix is closed and measures 4.0 cm in length. There is a single viable intrauterine gestation. Cardiac activity is present with 139 beats per min [place]. There is a vertex presentation. The placenta is posterior. There is a marginal placenta previa. There is no evidence of placental a bruption. There is a normal amount of amniotic fluid with an LENA = 20.7 cm. Biophysical profile: movement 2/2 tone 2/2. breathing 2/2 LENA 2/2 Total 02/24 RPTAT: AA . IMPRESSION: Normal biophysical profile. Posterior placenta with a marginal placenta previa. The cervix is closed and measures 4 cm in length. Normal LENA of 20.7 cm, compared with an LENA of 18.2 cm previously. Physician Lisa Date Time Electronically viewed and signed by Physician Lisa on 04/17/2017 17:20 /
[2017-04-17 18:17] LABS: BASOPHILS % 0.3 % (0.0-2.0); EOSINOPHILS # 0.1 10^3/ul (0.0-0.5); EOSINOPHILS % 1.3 % (0.0-7.0); HEMATOCRIT 29.1 % (37.0-47.0); HEMOGLOBIN 9.7 g/dl (12.0-16.0); LYMPHOCYTES # 1.4 10^3/ul (0.8-2.9); LYMPHOCYTES % 20.1 % (15.0-51.0); MEAN CORPUSCULAR HGB CONC 33.3 g/dl (32.0-37.0); MEAN CORPUSCULAR VOLUME 87.1 fl (82.0-101.0); MEAN PLATELET VOLUME 10.7 fl (7.4-10.4); MONOCYTE # 0.7 10^3/ul (0.3-0.9); MONOCYTES % 9.6 % (0.0-11.0); NEUTROPHIL # 4.8 10^3/ul (1.6-7.5); PLATELET COUNT 133 10^3/UL (140-415); RED BLOOD COUNT 3.34 10^6/ul (4.20-5.40); RED CELL DISTRIBUTION WIDTH 13.3 % (11.5-14.5)
--- NOTE | 2017-04-17 18:29 | PN ---
Triage Information Date/Time Reason for visit: Vag spotting / bleeding Weeks of Gestation 27w 4d /Para Objective Heart Rate Comments reactive Contractions: None Results/Medications Result Diagram: 04/17/17 1711 Results 24 hrs Laboratory Tests Test 04/17/17 15:40 04/17/17 17:11 Urine Color YELLOW Urine Clarity SLIGHTLY CLOUDY A Urine pH 7.0 Urine Specific [place] 1.018 Urine Ketones NEGATIVE Urine Nitrite NEGATIVE Urine Bilirubin NEGATIVE Urine Urobilinogen 2+ H Urine Leukocyte Esterase NEGATIVE Urine Microscopic RBC > 182 H Urine Microscopic WBC 0 Urine Squamous Epithelial Cells FEW Urine Hemoglobin 3+ H Urine Glucose 1+ H Urine Total Protein 1+ H White Blood Count 7.0 Red Blood Count 3.34 L Hemoglobin 9.7 L Hematocrit 29.1 L Mean Corpuscular Volume 87.1 Mean Corpuscular Hemoglobin 29.0 Mean Corpuscular Hemoglobin Concent 33.3 Red Cell Distribution Width 13.3 Platelet Count 133 L Mean Platelet Volume 10.7 H Neutrophils % 68.0 Lymphocytes % 20.1 Monocytes % 9.6 Eosinophils % 1.3 Basophils % 0.3 Nucleated Red Blood Cells % 0.0 Neutrophils # 4.8 Lymphocytes # 1.4 Monocytes # 0.7 Eosinophils # 0.1 Basophils # 0.0 Nucleated Red Blood Cells # 0.0 Imaging Results LENA 20.7cm, CL 4.0cm, +marginal previa Disposition: Discharge Assessment/Plan Previa precautions given RAVI MARTÍNEZ Apr 17, 2017 18:29
[2017-04-17 18:39] VITALS: BP 111/54; PULSE 107; RESP 20; Ht 154.9 cm; Wt 73.1 kg
[2017-04-17 19:07] LABS: ALBUMIN 3.2 g/dl (3.3-4.9); BILIRUBIN,INDIRECT 0.2 mg/dl (0-1.1); BILIRUBIN,TOTAL 0.2 mg/dl (0.2-1.3); CALCIUM 8.4 mg/dl (8.4-10.2); CREATININE 0.46 mg/dl (0.44-1.00); POTASSIUM 3.5 mmol/L (3.5-5.1); TOTAL PROTEIN 6.4 g/dl (6.1-8.1)
--- NOTE | 2017-04-17 20:21 | TRIAGE ---
OB Triage Datetime Report Generated by CPN: 04/17/2017 20:20 Datetime: 04/17/2017 15:24 Time of Arrival: 04/17/2017 15:24 EGA: 27.4 Arrived By: Ambulatory Arrived From: Home Chief Complaint: BLEEDING Vaginal Bleeding: None Vaginal Discharge: Denies Recent Sexual Intercouse: Denies Additional Patient Complaints: PT STATES HX OF LOW LYING PLACENTA Time Provider Notified: 04/17/2017 16:00 Provider Notified: MARYSE Datetime: 04/14/2017 20:32 Labor Evaluation Frequency: 0 Monitor Mode: External Resting Tone [place]: Relaxed Contraction Comments: abdomen soft on palpation Heart Rate FHR Baseline Rate: 140 Monitor Mode: External US Variability: Moderate 6-25 bpm Accelerations: 10X10 Decelerations: None Category: Category I Pain Assessment Pain Scale: 0 Pain Presence: None/Denies Pain Type: N/A Datetime: 04/14/2017 20:07 Labor Evaluation Frequency: 0 Resting Tone [place]: Relaxed Heart Rate FHR Baseline Rate: 140 Monitor Mode: External US Pain Assessment Pain Scale: 0 Pain Presence: None/Denies Pain Type: N/A Datetime: 04/14/2017 19:09 Stage of : OB Triage Datetime: 04/14/2017 17:52 Labor Evaluation Frequency: 0 Monitor Mode: External Resting Tone [place]: Relaxed Heart Rate FHR Baseline Rate: 135 Monitor Mode: External US Variability: Moderate 6-25 bpm Decelerations: None Category: Category I Pain Assessment Pain Scale: 0 Pain Presence: None/Denies Pain Type: N/A Pain Goal: 3 Pain Relief Measures: Comfort Measures Datetime: 04/14/2017 16:51 Labor Evaluation Frequency: 0 Monitor Mode: External Resting Tone [place]: Relaxed Heart Rate FHR Baseline Rate: 135 Monitor Mode: External US Variability: Moderate 6-25 bpm Accelerations: None Decelerations: None Category: Category I Pain Assessment Pain Scale: 3 Pain Presence: None/Denies Pain Type: N/A Pain Goal: 3 Pain Relief Measures: Comfort Measures Datetime: 04/14/2017 15:59 Stage of : OB Triage Datetime: 04/14/2017 15:53 Labor Evaluation Frequency: 0 Monitor Mode: External Resting Tone [place]: Relaxed Heart Rate FHR Baseline Rate: 135 Monitor Mode: External US Variability: Moderate 6-25 bpm Decelerations: None Category: Category I Pain Assessment Pain Scale: 4 Pain Presence: Intermittent Pain Type: Burning Pain Goal: 3 Pain Assessment Comments: BURNING ON URINATION Datetime: 04/14/2017 15:00 Labor Evaluation Frequency: 0 Monitor Mode: External Pattern: Normal: <= 5 Contractions in 10 Minutes Resting Tone [place]: Relaxed Heart Rate FHR Baseline Rate: 135 Monitor Mode: External US Variability: Moderate 6-25 bpm Decelerations: None Category: Category I Pain Assessment Pain Scale: 4 Pain Presence: Intermittent Pain Location: Abdomen; Back Pain Goal: 3 Pain Relief Measures: Comfort Measures Datetime: 04/14/2017 14:29 Assessment Type: Triage Maternal Assessment Level of Consciousness: Fully Conscious DTR's/Clonus: DTRs 2+; No Clonus Headache: Denies Blurred Vision: No Respiratory Effort: Unlabored; Regular Rhythm; Equal Expansion Breath Sounds, Left: Clear and Equal Breath Sounds, Right: Clear and Equal Nausea/Vomiting: Denies RUQ Epigastric Pain: Denies Lower Extremities Edema: None Degree: None Upper Extremities Edema: None Degree: None Facial Edema: None Fall Risk Assessment History of Falling: (0) No Secondary Diagnosis: (0) No Ambulatory Aid: (0) Bedrest/Nurse Assist IV Therapy: (0) No Gait: (0) Normal/Bedrest/Immobile Mental Status: (0) Oriented to Own Ability Fall Score: 0 Fall Risk Score Definition: No Risk: No action required Datetime: 04/14/2017 14:27 Time of Arrival: 04/14/2017 14:05 EGA: 27.1 Arrived By: Ambulatory Arrived From: Home Chief Complaint: PT HERE C/O ABD PAIN, BACK PAIN AND SWOLLEN PERINEUM Movement: Present Contractions: Denies/Absent Rupture of Membranes: Denies Vaginal Bleeding: None Vaginal Discharge: Present Recent Sexual Intercouse: Denies Abdominal Trauma: Not Applicable Patient Complaints: Cramping; Back Pain Provider Notified: JASON Initial Plan: MONITOR, U/A Datetime: 04/14/2017 14:22 Monitor Mode: External Monitor Mode: External US Datetime: 04/06/2017 09:37 Fall Score: 0 Fall Risk Score Definition: No Risk: No action required Datetime: 04/06/2017 09:35 EGA: 26.0 Datetime: 04/01/2017 19:30 EGA: 25.2 Datetime: 03/15/2017 18:45 Fall Score: 0 Fall Risk Score Definition: No Risk: No action required Datetime: 03/02/2017 09:09 EGA: 22.6 Datetime: 03/01/2017 23:25 EGA: 21.0 Datetime: 03/01/2017 22:02 Fall Score: 15 Fall Risk Score Definition: No Risk: No action required
== END 2017-04-17 18:46 | disposition home or self-care (01) ==
LOC: OBT 15:37 → L-D 15:38 → OBT 18:46
PROVIDERS: ATTEND Obstetrics & Gynecology
DX: O46.8X2 Other antepartum hemorrhage, second trimester (principal); Z3A.27 27 weeks gestation of pregnancy
CPT/HCPCS: 76817; 76818; 80053; 81001; 85025; 86850; 86900; 86901; Z7500; G0463

== ENCOUNTER 2017-04-25 11:53 | Inpatient (IN) | payer OTHER ==
[~2017-04-25] VITALS: Ht 154.9 cm; Wt 71.9 kg
[~2017-04-25 11:53] MED LIST changes: -CEPH500C PO
[2017-04-25 12:26] VITALS: BP 110/61; PULSE 88; RESP 18
[2017-04-25] MEDS ORDERED: LACTATED RINGER'S 1,000 ML IV ONE (13:00)
--- NOTE | 2017-04-25 13:22 | RADRPT ---
PROCEDURE: OB ultrasound for biophysical profile CLINICAL INDICATION: Poor tone. TECHNIQUE: Multiple sonographic images of the pelvis were obtained. Transabdominal views of the g ravid uterus are available for review. The images were reviewed on a PACS workstation. COMPARISON: None FINDINGS: breathing movement = 2/2 tone = 2/2 motion = 2/2 LENA = 2/2 ELNA = 20.5 cm Single live intrauterine with cardiac activity of 124 bpm. position is cephal ic. The placenta is bilobed with anterior and posterior components. IMPRESSION: 1. Single live intrauterine gestation. 2. Biophysical profile = 8/8. 3. LENA = 20.5 cm. 4. Bilobed placenta. The posterior component is low lying. The cervix is not well visualized, ralf centa previa is not excluded. RPTAT: HH .Jenny Story MD, Date Time Electronically viewed and signed by .Jenny Story MD, on 04/25/2017 13:21 .G/
--- NOTE | 2017-04-25 13:54 | HP ---
Date/Time of Note Date/Time of Note DATE: 04/25/17 TIME: 13:51 OB - History Hx of Present Free Text/Dictation @28+wks GA with vaginal bleeding(No Active bleeding at this time)Some CTxs : 5 Para: 2 Care: Good Care Obstetrical Complications: None Medical Complications: None Past Family/Social History * Past Medical, Surgical, Family and Obstetric Histories reviewed from chart. OB Admission Exam Vital Signs Vital Signs Vital Signs Date Time Temp Pulse Resp B/P Pulse Ox O2 Delivery O2 Flow Rate FiO2 04/25/17 12:26 97.9 88 18 110/61 96 Room Air Physical Exam Abdomen: WNL Reflexes: Normal Membranes: Intact Accelerations: Accelerations Present Decelerations: No Decelerations Varibility: Moderate Contractions on Admission: >10 Minutes Apart OB Assessment/Plan Reason for admission: observation, labor Plan: Expectant Management Other plan: 1.Perinatalogy consult 2.Mg 3.Steroid 4.NPO 5.Continious monitoring 5.Complete bed rest 6.Type and cross 7.2 units PRBC on hold 8.Close Observation JOVANY ARECHIGA M.D. Apr 25, 2017 13:54
[2017-04-25] MEDS ORDERED: MAGNESIUM SULFATE 4 GM/100 ML 100 ML IV ONE (14:00)
[2017-04-25] MEDS ORDERED: MAGNESIUM SULFATE 6 GM in SOD CHLORIDE 0.9% 100 ML IV ONE (14:00)
--- NOTE | 2017-04-25 14:39 | RADRPT ---
PROCEDURE: US Limited OB. CLINICAL INDICATION: Placental location. TECHNIQUE: Multiple sonographic images of the pelvis were obtained. Transabdominal imaging only w as performed. COMPARISON: 04/17/2017. FINDINGS: Cardiac activity is present with 3.0 beats per minute. Presentation is vertex. Measurements were made in order to determine age. The results are as follows: BPD = 30 w 1 d HC = 29 w 4 d AC = 29 w 1 d FL = 28 w 3 d Estimated weight is 1317 g, 47%. The placenta is bilobed, with no evidence of previa. IMPRESSION: 1. Single, live intrauterine with estimated age of 29 weeks, 2 days. 2. Estimated weight: 1317 g, 47%. 3. Bilobed placenta with low-lying posterior component. RPTAT: EE .Maurisio Cano MD, Date Time Electronically viewed and signed by .Maurisio Cano MD, on 04/25/2017 14:45 .C/
[2017-04-25] MEDS: BETAMET NA PHOS/AC(6 MG/ML) 5ML INJ IM SCH (15:42)
[2017-04-25] MEDS: LACTATED RINGER'S 1,000 ML IV SCH ×2 (15:42→23:56)
[2017-04-25 15:47] LABS: BASOPHILS % 0.3 % (0.0-2.0); EOSINOPHILS # 0.1 10^3/ul (0.0-0.5); EOSINOPHILS % 1.6 % (0.0-7.0); HEMATOCRIT 30.9 % (37.0-47.0); HEMOGLOBIN 10.2 g/dl (12.0-16.0); LYMPHOCYTES % 29.2 % (15.0-51.0); MEAN CORPUSCULAR HEMOGLOBIN 28.6 pg (29.0-33.0); MEAN CORPUSCULAR VOLUME 86.6 fl (82.0-101.0); MEAN PLATELET VOLUME 10.6 fl (7.4-10.4); MONOCYTE # 0.5 10^3/ul (0.3-0.9); MONOCYTES % 7.2 % (0.0-11.0); NEUTROPHIL # 4.1 10^3/ul (1.6-7.5); NEUTROPHILS % 61.1 % (39.0-77.0); PLATELET COUNT 147 10^3/UL (140-415); RED BLOOD COUNT 3.57 10^6/ul (4.20-5.40); RED CELL DISTRIBUTION WIDTH 13.3 % (11.5-14.5); WHITE BLOOD COUNT 6.8 10^3/ul (4.8-10.8)
[2017-04-25 15:59] LABS: ADD UMIC YES; UR ASCORBIC ACID 40 mg/dL (NEGATIVE); UR BILIRUBIN (Dip) NEGATIVE (NEGATIVE); UR BLOOD (Dip) 3+ mg/dL (NEGATIVE); UR CLARITY SLIGHTLY CLOUDY (CLEAR); UR COLOR YELLOW (YELLOW); UR GLUCOSE (Dip) 3+ mg/dL (NEGATIVE); UR KETONES (Dip) NEGATIVE (NEGATIVE); UR LEUKOCYTE ESTERASE (Dip) NEGATIVE Leu/ul (NEGATIVE); UR MUCUS FEW /HPF (NONE SEEN); UR NITRITE (Dip) NEGATIVE (NEGATIVE); UR RBC > 182 /HPF (0-5); UR SPECIFIC GRAVITY (Dip) 1.017 (1.003-1.030); UR SQUAMOUS EPITHELIAL CELL FEW /HPF (FEW); UR TOTAL PROTEIN (Dip) NEGATIVE (NEGATIVE); UR URIC ACID CRYSTAL FEW /HPF (NONE SEEN); UR UROBILINOGEN (Dip) NEGATIVE (NEGATIVE)
[2017-04-25] MEDS: MAGNESIUM SULFATE 20 GM/500 ML 500 ML IV SCH (16:13)
--- NOTE | 2017-04-25 16:24 | TRIAGE ---
OB Triage Datetime Report Generated by CPN: 04/25/2017 16:23 Datetime: 04/25/2017 16:18 Labor Evaluation Frequency: 0 Monitor Mode: External Resting Tone [place]: Relaxed Monitor Mode: External US FHR Baseline Changes: No Baseline Change Variability: Moderate 6-25 bpm Decelerations: None Category: Category I Pain Assessment Pain Scale: 0 Pain Presence: None/Denies Datetime: 04/25/2017 16:12 Membrane Status: Intact Vaginal Bleeding: None Datetime: 04/25/2017 15:57 Labor Evaluation Frequency: 0 Monitor Mode: External Resting Tone [place]: Relaxed Heart Rate FHR Baseline Rate: 135 Monitor Mode: External US FHR Baseline Changes: No Baseline Change Variability: Moderate 6-25 bpm Decelerations: None Category: Category I Pain Assessment Pain Scale: 0 Pain Presence: None/Denies Datetime: 04/25/2017 15:48 Maternal Assessment Level of Consciousness: Fully Conscious DTR's/Clonus: DTRs 2+; No Clonus Headache: Denies Blurred Vision: No Breath Sounds, Left: Clear and Equal Breath Sounds, Right: Clear and Equal Nausea/Vomiting: Denies RUQ Epigastric Pain: Denies Lower Extremities Edema: None Degree: None Upper Extremities Edema: None Degree: None Facial Edema: None Datetime: 04/25/2017 15:17 Assessment Type: Admission Assessment Time of Arrival: 04/25/2017 15:17 EGA: 28.5 Arrived By: Stretcher Arrived From: TRIAGE Vaginal Bleeding: None Maternal Assessment Level of Consciousness: Fully Conscious DTR's/Clonus: DTRs 2+; No Clonus Headache: Denies Blurred Vision: No Respiratory Effort: Unlabored; Regular Rhythm; Equal Expansion Breath Sounds, Left: Clear and Equal Breath Sounds, Right: Clear and Equal Nausea/Vomiting: Denies RUQ Epigastric Pain: Denies Lower Extremities Edema: None Degree: None Upper Extremities Edema: None Degree: None Facial Edema: None Fall Risk Assessment History of Falling: (0) No Secondary Diagnosis: (0) No Ambulatory Aid: (0) Bedrest/Nurse Assist IV Therapy: (0) No Gait: (0) Normal/Bedrest/Immobile Mental Status: (0) Oriented to Own Ability Fall Score: 0 Fall Risk Score Definition: No Risk: No action required Labor Evaluation Frequency: IRREGULAR Duration (sec)2399: 20-60 Quality: Mild Pattern: Normal: <= 5 Contractions in 10 Minutes Resting Tone [place]: Relaxed Pain Assessment Pain Scale: 6 Pain Presence: Intermittent Pain Type: Cramping Pain Location: Abdomen; Back Pain Goal: 0 Vaginal Exam Dilatation (cms): DEFFER Membrane Status: Intact Datetime: 04/25/2017 15:11 Labor Evaluation Frequency: 0 Monitor Mode: External Pattern: Normal: <= 5 Contractions in 10 Minutes Resting Tone [place]: Relaxed Heart Rate FHR Baseline Rate: 140 FHR Baseline Changes: No Baseline Change Variability: Moderate 6-25 bpm Accelerations: 10X10 Decelerations: None Datetime: 04/25/2017 15:00 Labor Evaluation Frequency: 0 Monitor Mode: External Pattern: Normal: <= 5 Contractions in 10 Minutes Resting Tone [place]: Relaxed Heart Rate FHR Baseline Rate: 135 FHR Baseline Changes: No Baseline Change Variability: Moderate 6-25 bpm Accelerations: 10X10 Decelerations: None Datetime: 04/25/2017 14:00 Labor Evaluation Frequency: 0 Monitor Mode: External Pattern: Normal: <= 5 Contractions in 10 Minutes Resting Tone [place]: Relaxed Heart Rate FHR Baseline Rate: 140 Monitor Mode: External US FHR Baseline Changes: No Baseline Change Variability: Moderate 6-25 bpm Accelerations: 10X10 Decelerations: Variable Datetime: 04/25/2017 13:00 Labor Evaluation Frequency: 0 Monitor Mode: External Pattern: Normal: <= 5 Contractions in 10 Minutes Resting Tone [place]: Relaxed Heart Rate FHR Baseline Rate: 135 Monitor Mode: External US FHR Baseline Changes: No Baseline Change Variability: Moderate 6-25 bpm Accelerations: 15X15 Datetime: 04/25/2017 12:21 Time of Arrival: 04/25/2017 11:47 EGA: 28.5 Arrived By: Ambulatory Arrived From: Home Chief Complaint: BLEEDING, STARTING 04/24 - SATURATED 2 PADS BETWEEN [id number]; NOW, JUST SPOTTING WHEN WIPING; BRIGHT RED, WATERY BLOOD Movement: Present Contractions: Denies/Absent Rupture of Membranes: Denies Vaginal Bleeding: Small Vaginal Discharge: Present Recent Sexual Intercouse: Denies Patient Complaints: Cramping; Other Additional Patient Complaints: CONSTANT LOWER RIGHT ABDOMINAL CRAMPING PAIN OF 6/10 Time Provider Notified: 04/25/2017 12:35 Provider Notified: DR. GOMEZ Initial Plan: EFM x2, U/A, CBC, BPP, IV HYDRATION, MONITOR x4 HOURS Datetime: 04/25/2017 12:15 Stage of : OB Triage Assessment Type: Triage Maternal Assessment Level of Consciousness: Fully Conscious Headache: Denies Blurred Vision: No Respiratory Effort: Unlabored; Regular Rhythm; Equal Expansion Breath Sounds, Left: Clear and Equal Breath Sounds, Right: Clear and Equal Nausea/Vomiting: Denies RUQ Epigastric Pain: Denies Lower Extremities Edema: None Degree: None Upper Extremities Edema: None Degree: None Facial Edema: None Temperature Route: Oral Fall Risk Assessment History of Falling: (0) No Secondary Diagnosis: (0) No Ambulatory Aid: (0) Bedrest/Nurse Assist IV Therapy: (0) No Gait: (0) Normal/Bedrest/Immobile Mental Status: (0) Oriented to Own Ability Fall Score: 0 Fall Risk Score Definition: No Risk: No action required Pain Assessment Pain Scale: 6 Pain Presence: Constant Pain Type: Cramping Pain Location: Abdomen (Annotations: LOWER RIGHT) Datetime: 04/17/2017 18:13 Labor Evaluation Frequency: 0 Monitor Mode: External Duration (sec)2399: 0 Resting Tone [place]: Relaxed Contraction Comments: PT DENIES UC'S NO UC'S NOTED AT THIS TIME Heart Rate FHR Baseline Rate: 145 Monitor Mode: External US Variability: Moderate 6-25 bpm Accelerations: 15X15 Decelerations: None Category: Category I Datetime: 04/17/2017 17:30 Stage of : Labor Labor Evaluation Frequency: 0 Monitor Mode: External Duration (sec)2399: 0 Resting Tone [place]: Relaxed Heart Rate FHR Baseline Rate: 145 Monitor Mode: External US Variability: Moderate 6-25 bpm Accelerations: 15X15 Decelerations: None Datetime: 04/17/2017 16:30 Labor Evaluation Frequency: 0 Monitor Mode: External Duration (sec)2399: 0 Resting Tone [place]: Relaxed Heart Rate FHR Baseline Rate: 145 Monitor Mode: External US Variability: Moderate 6-25 bpm Accelerations: 15X15 Decelerations: None Datetime: 04/17/2017 15:24 EGA: 27.4 Initial Plan: PT DENIES RECENT SEX Datetime: 04/14/2017 14:29 Fall Score: 0 Fall Risk Score Definition: No Risk: No action required Datetime: 04/14/2017 14:27 EGA: 27.1 Datetime: 04/06/2017 09:37 Fall Score: 0 Fall Risk Score Definition: No Risk: No action required Datetime: 04/06/2017 09:35 EGA: 26.0 Datetime: 04/01/2017 19:30 EGA: 25.2 Datetime: 03/15/2017 18:45 Fall Score: 0 Fall Risk Score Definition: No Risk: No action required Datetime: 03/02/2017 09:09 EGA: 22.6 Datetime: 03/01/2017 23:25 EGA: 21.0 Datetime: 03/01/2017 22:02 Fall Score: 15 Fall Risk Score Definition: No Risk: No action required
[2017-04-25] MEDS: DOCUSATE SODIUM 100 MG CAP PO SCH (21:00)
--- NOTE | 2017-04-26 00:33 | RADRPT ---
PROCEDURE: ULTRASOUND OBSTETRICAL LIMITED April 25, 2017 11:44 p.m. CLINICAL INDICATION: 36-year-old female for position and placental evaluation. TECHNIQUE: Limited sonographic images of the pelvis were obtained. The images were reviewed on a PACS workstation. COMPARISON: Ultrasound OB limited April 25, 2017 at 01:12 p.m.. FINDINGS: The cervix is not well visualized. There is a single viable intrauterine gestation. Cardiac activit y is present with 132 beats per minute. There is a vertex presentation. The placenta is bilobed with anterior and posterior components. The posterior aspect is adjacent to the internal os consistent w ith a marginal placenta previa. There is no evidence for an abruption. IMPRESSION: 1. Single viable intrauterine gestation with vertex presentation. 2. Bilobed placenta with anterior/posterior components with marginal placenta previa of the posteri or aspect. .Ze Eason MD, Date Time Electronically viewed and signed by .Ze Eason MD, MD on 04/26/2017 00:33 .M/
[2017-04-26 01:21] LABS: BASOPHILS % 0.1 % (0.0-2.0); HEMATOCRIT 28.5 % (37.0-47.0); HEMOGLOBIN 9.1 g/dl (12.0-16.0); LYMPHOCYTES # 1.2 10^3/ul (0.8-2.9); LYMPHOCYTES % 15.2 % (15.0-51.0); MEAN CORPUSCULAR HEMOGLOBIN 27.4 pg (29.0-33.0); MEAN CORPUSCULAR HGB CONC 31.9 g/dl (32.0-37.0); MEAN CORPUSCULAR VOLUME 85.8 fl (82.0-101.0); MEAN PLATELET VOLUME 10.7 fl (7.4-10.4); MONOCYTE # 0.1 10^3/ul (0.3-0.9); MONOCYTES % 1.7 % (0.0-11.0); NEUTROPHIL # 6.5 10^3/ul (1.6-7.5); NEUTROPHILS % 82.5 % (39.0-77.0); PLATELET COUNT 159 10^3/UL (140-415); RED BLOOD COUNT 3.32 10^6/ul (4.20-5.40); RED CELL DISTRIBUTION WIDTH 13.5 % (11.5-14.5); WHITE BLOOD COUNT 7.8 10^3/ul (4.8-10.8)
[2017-04-26] MEDS: MAGNESIUM SULFATE 20 GM/500 ML 500 ML IV SCH ×3 (01:31→21:56)
[2017-04-26] MEDS: ACETAMINOPHEN 325 MG TAB PO PRN ×3 (01:47→22:26)
--- NOTE | 2017-04-26 02:08 | RADRPT ---
PROCEDURE: ULTRASOUND BIOPHYSICAL PROFILE CLINICAL INDICATION: 36-year-old female with vaginal bleeding. TECHNIQUE: Multiple sonographic images were obtained in order to perform a biophysical profile The images were reviewed on a PACS workstation. COMPARISON: Ultrasound OB limited April 25, 2017. FINDINGS: There is a single viable intrauterine gestation. There is a vertex presentation. Cardiac activity i s present at 133 beats per minute. The placenta is again noted to be a bilobed with the anterior/po sterior components. There appears to be a marginal placenta previa within the posterior aspect. Ther e is no evidence for placental abruption. The results of the biophysical profile are as follows: breathing movement = 2/2 Gross body movement = 2/2 tone = 2/2 Qualitative amniotic fluid volume = 2/2 Amniotic fluid index equals 20.1 cm. This yields a biophysical profile score of 8/8. IMPRESSION: 1. Biophysical profile score is 8/8. 2. Bilobed placenta with anterior/posterior components and posterior marginal placenta previa. 3. Amniotic fluid index equals 20.1 cm. .Ze Eason MD, Date Time Electronically viewed and signed by .Ze Eason MD, on 04/26/2017 02:08 .M/
[2017-04-26 02:51] LABS: INR 0.96; PARTIAL THROMBOPLASTIN TIME 28.1 Sec (25.0-35.0); PROTIME 12.8 Sec (12.2-14.2)
[2017-04-26 03:22] LABS: BARBITURATES Negative (NEGATIVE); BENZODIAZEPINES Negative (NEGATIVE); CANNABINOIDS Negative (NEGATIVE); COCAINE Negative (NEGATIVE); OPIATES Negative (NEGATIVE)
[2017-04-26 07:19] LABS: BASOPHILS % 0.1 % (0.0-2.0); HEMATOCRIT 27.5 % (37.0-47.0); HEMOGLOBIN 9.1 g/dl (12.0-16.0); LYMPHOCYTES # 1.2 10^3/ul (0.8-2.9); LYMPHOCYTES % 14.7 % (15.0-51.0); MEAN CORPUSCULAR HEMOGLOBIN 28.5 pg (29.0-33.0); MEAN CORPUSCULAR HGB CONC 33.1 g/dl (32.0-37.0); MEAN CORPUSCULAR VOLUME 86.2 fl (82.0-101.0); MEAN PLATELET VOLUME 10.4 fl (7.4-10.4); MONOCYTE # 0.3 10^3/ul (0.3-0.9); MONOCYTES % 4.1 % (0.0-11.0); NEUTROPHIL # 6.6 10^3/ul (1.6-7.5); NEUTROPHILS % 80.3 % (39.0-77.0); PLATELET COUNT 151 10^3/UL (140-415); RED BLOOD COUNT 3.19 10^6/ul (4.20-5.40); RED CELL DISTRIBUTION WIDTH 13.3 % (11.5-14.5); WHITE BLOOD COUNT 8.2 10^3/ul (4.8-10.8)
[2017-04-26] MEDS: LACTATED RINGER'S 1,000 ML IV SCH ×2 (09:17→21:52)
--- NOTE | 2017-04-26 12:04 | QN ---
Documentation Comment 28+wks GA with labor and low lyring placenta NST reassuring [place] No Ctxs Pelvi Deffered --->Continue Mg --->Continue Sterid --->complete bed rest --->continious monitoring --->prenatalogy and Neonatalogy consult JOVANY ARECHIGA M.D. Apr 26, 2017 12:04
--- NOTE | 2017-04-26 13:34 | QN ---
Documentation Comment Neonatology consultation requested by Dr. Arnett. Reason for consultation mother admitted at 28-5/7 week on 04/25 with bleeding. Mrs. Arguello is 36-year-old 5 para 2 term 1 1 SAB 1I AB 1 with 2 living children admitted for bleeding. She has a history of previous bleeding from 17 weeks, and an ultrasound showed a low-lying placenta. She was started on magnesium sulfate received first dose of steroids she is not ruptured and has not been started on antibiotics. Estimated weight by report is 1317 g gestational age today is 28-6/7 weeks on 04/26. She had 2 previous vaginal deliveries, and in 2000 between (between the 2 deliveries) laparotomy be because of bleeding and a suspected tubal which was not confirmed no operation was done). She denies other illnesses medication smoke and drinks alcohol. Her blood type is B+ hepatitis B is negative HIV is negative RPR and group B strep are not available or done. I spoke to her extensively in her room, her youngest daughter was also present. We discussed issues related to prematurity such as neurodevelopmental problems , respiratory problems intracranial bleeding apnea infection feeding difficulties requiring gavage and intravenous feeding blood transfusions risk for feeding intolerance and necrotizing enterocolitis risk for infection and general expectation of hospital stay to be expected approximately until the due date or possibly 2 or 3 weeks shorter if no complications occur. Many other issues were also discussed and she asked good questions which were answered to her satisfaction. Mrs. Arguello works at [employer] as a [employer] department, her is in construction. Thank you for allowing me to be as of assistance in this family of course team attendance and admission to NICU are expected and because of the low lying placenta I presume that section is very likely if bleeding is presenting problem in the future. FEROZ SANTA Apr 26, 2017 13:34
[2017-04-26] MEDS: DOCUSATE SODIUM 100 MG CAP PO SCH ×2 (14:13→21:00)
[2017-04-26] MEDS: BETAMET NA PHOS/AC(6 MG/ML) 5ML INJ IM SCH (15:45)
--- NOTE | 2017-04-26 20:52 | QN ---
Documentation Comment 36yo at 28+6 admitted for vaginal bleeding in the setting of bilobed placenta with posterior aspect marginal previa. S/p BMZ x2, NICU consult, on Magnesium Sulfate 2g/hr CTSP 2/2 episode of bleeding. Pt c/o ongoing lower abdominal pressure and tightening which has been unchanged since 2 days ago. On exam, bright red blood noted on chux Abd: soft, gravid, nontender, unable to palpate contraction SSE: unable to visualize cervix 2/2 prolapsing vaginal carey, large clot in vault, no active bleeding noted by observation of no pooling in vaginal vault s/ p removal of clot Chux weighed: 273ml SVE: deferred 2/2 previa FHT: baseline 120s, mod praveen, +accels, no decels [place]: intermittent period of irritability, no distinct contractions Hgb/Hct 9.1/27.5 (04/26 @ 0646) Rh positive A/P: placenta previa with acute bleed ->Pt remains hemodynamically stable with no ongoing bleeding thus will continue conservative management ->FHT w/reactive NST ->Stat CBC, Coags, Fibrinogen ->Repeat U/S to assess cervical length given inability to assess visually on SSE ->NPO in case delivery needed ->Maintain T&C x2u PRBCs ->Observe bleeding. Discussed with pt that delivery will be indicated in the following scenarios: persistent severe bleeding, labor, unstable maternal vital signs or labs unresponsive to resuscitation, or abnormal heart tracing. Pt understands need for C/S for delivery given vaginal delivery is contraindicated in the setting of placenta previa. signed consents for Section and transfusion of blood products on admission. The risks, benefits and alternatives of C/S and transfusion were reviewed. Risks of C/S discussed include but are not limited to pain, infection, damage to nearby organs, structures or injury to baby, bleeding possibly requiring transfusion of blood products and abnormal placentation in future pregnancies. Pt made aware that should injury to organs or structures be noted during the procedure, they will be repaired. However, there is a possibility that injuries may be sustained at the time of the C/S and go unrecognized. Thus additional surgeries may be necessary to repair damage during the C/S. Risks of transfusion of blood products include infectious risks and transfusion related reactions. The pt had an opportunity to have her questions answered. RN teams made aware of plan for patient care at this time. BRAD MAE MD Apr 26, 2017 20:52
[2017-04-26 21:10] LABS: BASOPHILS % 0.1 % (0.0-2.0); HEMATOCRIT 24.7 % (37.0-47.0); HEMOGLOBIN 8.1 g/dl (12.0-16.0); LYMPHOCYTES # 1.1 10^3/ul (0.8-2.9); LYMPHOCYTES % 12.5 % (15.0-51.0); MEAN CORPUSCULAR HEMOGLOBIN 28.3 pg (29.0-33.0); MEAN CORPUSCULAR HGB CONC 32.8 g/dl (32.0-37.0); MEAN CORPUSCULAR VOLUME 86.4 fl (82.0-101.0); MEAN PLATELET VOLUME 10.4 fl (7.4-10.4); MONOCYTE # 0.2 10^3/ul (0.3-0.9); MONOCYTES % 2.7 % (0.0-11.0); NEUTROPHIL # 7.5 10^3/ul (1.6-7.5); NEUTROPHILS % 84.1 % (39.0-77.0); PLATELET COUNT 162 10^3/UL (140-415); RED BLOOD COUNT 2.86 10^6/ul (4.20-5.40); RED CELL DISTRIBUTION WIDTH 13.6 % (11.5-14.5); WHITE BLOOD COUNT 8.9 10^3/ul (4.8-10.8)
[2017-04-26 21:26] LABS: INR 0.99; PROTIME 13.1 Sec (12.2-14.2)
[2017-04-26 21:51] LABS: PARTIAL THROMBOPLASTIN TIME 23.4 Sec (25.0-35.0)
--- NOTE | 2017-04-26 22:02 | RADRPT ---
PROCEDURE: CERVICAL LENGTH ULTRASOUND CLINICAL INDICATION: Bleeding. TECHNIQUE: Trans-vaginal imaging of the cervical canal was performed utilizing ribeiro-scale imaging. Sagittal and transverse images were obtained. Trans-abdominal images were also obtained. The vinicius ges were reviewed on a PACS workstation. COMPARISON: OB ultrasound of the same day 04/26/2017. FINDINGS: The cervix is closed with a length of 5.3 cm. There is a single live intrauterine . heart rate is 131 beats per minute. The prese ntation is cephalic. Bilobed placenta is again noted with anterior/posterior components and posterior marginal placenta p revia. IMPRESSION: 1. Cervical length measures 5.3 cm. 2. Bilobed placenta with anterior/posterior components and posterior marginal placenta previa. RPTAT: HFN .Frannie Milian MD, MD Date Time Electronically viewed and signed by .Frannie Milian MD, MD on 04/26/2017 22:02 .N/
[2017-04-26] MEDS: DIPHENHYDRAMINE 25 MG CAP PO PRN (23:22)
[2017-04-27] MEDS: DEXTROSE 5%-LR 1,000 ML IV SCH (05:55)
[2017-04-27 07:05] LABS: BASOPHILS % 0.1 % (0.0-2.0); HEMATOCRIT 23.2 % (37.0-47.0); HEMOGLOBIN 7.5 g/dl (12.0-16.0); LYMPHOCYTES # 1.5 10^3/ul (0.8-2.9); MEAN CORPUSCULAR HEMOGLOBIN 28.3 pg (29.0-33.0); MEAN CORPUSCULAR HGB CONC 32.3 g/dl (32.0-37.0); MEAN CORPUSCULAR VOLUME 87.5 fl (82.0-101.0); MEAN PLATELET VOLUME 10.1 fl (7.4-10.4); MONOCYTE # 0.5 10^3/ul (0.3-0.9); MONOCYTES % 5.8 % (0.0-11.0); NEUTROPHIL # 6.8 10^3/ul (1.6-7.5); NEUTROPHILS % 76.5 % (39.0-77.0); PLATELET COUNT 150 10^3/UL (140-415); RED BLOOD COUNT 2.65 10^6/ul (4.20-5.40); RED CELL DISTRIBUTION WIDTH 13.7 % (11.5-14.5); WHITE BLOOD COUNT 8.9 10^3/ul (4.8-10.8)
[2017-04-27 07:25] LABS: INR 1.03; PARTIAL THROMBOPLASTIN TIME 24.8 Sec (25.0-35.0); PROTIME 13.5 Sec (12.2-14.2); PT RATIO 1.1
[2017-04-27] MEDS: SOD CHLORIDE 0.9% 1,000 ML IV SCH (08:37)
--- NOTE | 2017-04-27 09:13 | QN ---
Documentation Comment Pt. had more spotting last night decrease of Hg to 7 tracing category 1 received 2 doses of beta methasone will stop magnesium will transfuse 2 unit of PRBC awaiting perinatology consult ANTHONY GOMEZ MD Apr 27, 2017 09:13
[2017-04-27] MEDS: ACETAMINOPHEN 325 MG TAB PO PRN ×2 (09:45→22:28)
[2017-04-27 19:30] LABS: BASOPHILS % 0.1 % (0.0-2.0); EOSINOPHILS % 0.1 % (0.0-7.0); HEMATOCRIT 27.3 % (37.0-47.0); LYMPHOCYTES # 1.5 10^3/ul (0.8-2.9); LYMPHOCYTES % 18.4 % (15.0-51.0); MEAN CORPUSCULAR HEMOGLOBIN 28.3 pg (29.0-33.0); MEAN CORPUSCULAR VOLUME 85.8 fl (82.0-101.0); MEAN PLATELET VOLUME 10.4 fl (7.4-10.4); MONOCYTE # 0.8 10^3/ul (0.3-0.9); MONOCYTES % 9.5 % (0.0-11.0); NEUTROPHIL # 5.9 10^3/ul (1.6-7.5); NEUTROPHILS % 71.1 % (39.0-77.0); NUCLEATED RED BLOOD CELLS% 0.2 /100WBC (0.0-0.0); PLATELET COUNT 137 10^3/UL (140-415); RED BLOOD COUNT 3.18 10^6/ul (4.20-5.40); RED CELL DISTRIBUTION WIDTH 14.4 % (11.5-14.5); WHITE BLOOD COUNT 8.3 10^3/ul (4.8-10.8)
[2017-04-27] MEDS: DOCUSATE SODIUM 100 MG CAP PO SCH (20:33)
[2017-04-27] MEDS: LACTATED RINGER'S 1,000 ML IV SCH (20:35)
[2017-04-27] MEDS: DIPHENHYDRAMINE 25 MG CAP PO PRN (22:28)
[2017-04-28] MEDS: DOCUSATE SODIUM 100 MG CAP PO SCH ×3 (02:35→20:36)
[2017-04-28] MEDS: DEXTROSE 5%-LR 1,000 ML IV SCH ×3 (02:37→22:00)
[2017-04-28] MEDS: SOD CHLORIDE 0.9% 1,000 ML IV SCH ×3 (02:37→16:30)
[2017-04-28] MEDS ORDERED: LACTATED RINGER'S 1,000 ML IV SCH (03:00)
[2017-04-28] MEDS: LACTATED RINGER'S 1,000 ML IV SCH ×2 (09:38→20:37)
[2017-04-28 09:44] LABS: BASOPHILS % 0.1 % (0.0-2.0); EOSINOPHILS % 0.3 % (0.0-7.0); HEMATOCRIT 26.1 % (37.0-47.0); HEMOGLOBIN 8.3 g/dl (12.0-16.0); LYMPHOCYTES # 1.9 10^3/ul (0.8-2.9); MEAN CORPUSCULAR HEMOGLOBIN 27.6 pg (29.0-33.0); MEAN CORPUSCULAR HGB CONC 31.8 g/dl (32.0-37.0); MEAN CORPUSCULAR VOLUME 86.7 fl (82.0-101.0); MEAN PLATELET VOLUME 10.1 fl (7.4-10.4); MONOCYTE # 0.5 10^3/ul (0.3-0.9); MONOCYTES % 5.7 % (0.0-11.0); NEUTROPHIL # 5.5 10^3/ul (1.6-7.5); NEUTROPHILS % 69.4 % (39.0-77.0); PLATELET COUNT 127 10^3/UL (140-415); RED BLOOD COUNT 3.01 10^6/ul (4.20-5.40); RED CELL DISTRIBUTION WIDTH 15.2 % (11.5-14.5); WHITE BLOOD COUNT 7.9 10^3/ul (4.8-10.8)
--- NOTE | 2017-04-28 15:01 | QN ---
Documentation Comment doing well vss no bleeding hemoglobin 8 tracing category 1 will continue to observe ANTHONY GOMEZ MD Apr 28, 2017 15:01
[2017-04-28 17:59] LABS: ALBUMIN 2.5 g/dl (3.3-4.9); ALBUMIN/GLOBULIN RATIO 0.83; BILIRUBIN,INDIRECT 0.1 mg/dl (0-1.1); BILIRUBIN,TOTAL 0.1 mg/dl (0.2-1.3); CALCIUM 8.1 mg/dl (8.4-10.2); CREATININE 0.47 mg/dl (0.44-1.00); POTASSIUM 3.7 mmol/L (3.5-5.1); TOTAL PROTEIN 5.5 g/dl (6.1-8.1)
[2017-04-28] MEDS: PRENATAL VITAMIN PO SCH (20:37)
[2017-04-28] MEDS: ACETAMINOPHEN 325 MG TAB PO PRN (20:53)
[2017-04-28] MEDS: DIPHENHYDRAMINE 25 MG CAP PO PRN (23:02)
[2017-04-29] MEDS: SOD CHLORIDE 0.9% 1,000 ML IV SCH ×2 (03:58→19:00)
[2017-04-29] MEDS: ACETAMINOPHEN 325 MG TAB PO PRN ×2 (04:01→22:14)
[2017-04-29] MEDS: LACTATED RINGER'S 1,000 ML IV SCH ×2 (06:55→17:09)
[2017-04-29] MEDS: DOCUSATE SODIUM 100 MG CAP PO SCH ×2 (09:25→21:21)
[2017-04-29] MEDS: PRENATAL VITAMIN PO SCH (09:25)
--- NOTE | 2017-04-29 09:31 | PN ---
Date/Time of Note Date/Time of Note DATE: 04/29/17 TIME: 09:28 OB Subjective Subjective Subjective Denies any leaking of fluid. Reports have scant brownish vaginal discharge. Denies any decreased movement. Comfortable at bed. Denies any other complaints. OB Objective Objective Objective Appearance: Alert and oriented 4. Patient does not appear to be in any acute distress. Abdomen: Soft, gravid, fundal height consistent with gestational age. No abdominal tenderness, no rebound tenderness, no guarding No CVA tenderness NST: Category 1 Occasional irritability seen Extremities: No calf tenderness, no click, no edema, no cords palpable Hematology - 72 Hrs Test 04/26/17 20:48 04/27/17 06:39 04/27/17 18:10 04/28/17 09:29 White Blood Count 8.910^3/ul (4.8-10.8) 8.910^3/ul (4.8-10.8) 8.310^3/ul (4.8-10.8) 7.910^3/ul (4.8-10.8) Red Blood Count 2.8610^6/ul (4.20-5.40) L 2.6510^6/ul (4.20-5.40) L 3.1810^6/ul (4.20-5.40) L 3.0110^6/ul (4.20-5.40) L Hemoglobin 8.1g/dl (12.0-16.0) L 7.5g/dl (12.0-16.0) L 9.0g/dl (12.0-16.0) L 8.3g/dl (12.0-16.0) L Hematocrit 24.7% (37.0-47.0) L 23.2% (37.0-47.0) L 27.3% (37.0-47.0) L 26.1% (37.0-47.0) L Mean Corpuscular Volume 86.4fl (82.0-101.0) 87.5fl (82.0-101.0) 85.8fl (82.0-101.0) 86.7fl (82.0-101.0) Mean Corpuscular Hemoglobin 28.3pg (29.0-33.0) L 28.3pg (29.0-33.0) L 28.3pg (29.0-33.0) L 27.6pg (29.0-33.0) L Mean Corpuscular Hemoglobin Concent 32.8g/dl (32.0-37.0) 32.3g/dl (32.0-37.0) 33.0g/dl (32.0-37.0) 31.8g/dl (32.0-37.0) L Red Cell Distribution Width 13.6% (11.5-14.5) 13.7% (11.5-14.5) 14.4% (11.5-14.5) 15.2% (11.5-14.5) H Platelet Count 40411^3/UL (140-415) 84954^3/UL (140-415) 37678^3/UL (140-415) L 75274^3/UL (140-415) L Mean Platelet Volume 10.4fl (7.4-10.4) 10.1fl (7.4-10.4) 10.4fl (7.4-10.4) 10.1fl (7.4-10.4) Neutrophils % 84.1% (39.0-77.0) H 76.5% (39.0-77.0) 71.1% (39.0-77.0) 69.4% (39.0-77.0) Lymphocytes % 12.5% (15.0-51.0) L 17.0% (15.0-51.0) 18.4% (15.0-51.0) 24.0% (15.0-51.0) Monocytes % 2.7% (0.0-11.0) 5.8% (0.0-11.0) 9.5% (0.0-11.0) 5.7% (0.0-11.0) Eosinophils % 0.0% (0.0-7.0) 0.0% (0.0-7.0) 0.1% (0.0-7.0) 0.3% (0.0-7.0) Basophils % 0.1% (0.0-2.0) 0.1% (0.0-2.0) 0.1% (0.0-2.0) 0.1% (0.0-2.0) Nucleated Red Blood Cells % 0.0/100WBC (0.0-0.0) 0.0/100WBC (0.0-0.0) 0.2/100WBC (0.0-0.0) H 0.0/100WBC (0.0-0.0) Neutrophils # 7.510^3/ul (1.6-7.5) 6.810^3/ul (1.6-7.5) 5.910^3/ul (1.6-7.5) 5.510^3/ul (1.6-7.5) Lymphocytes # 1.110^3/ul (0.8-2.9) 1.510^3/ul (0.8-2.9) 1.510^3/ul (0.8-2.9) 1.910^3/ul (0.8-2.9) Monocytes # 0.210^3/ul (0.3-0.9) L 0.510^3/ul (0.3-0.9) 0.810^3/ul (0.3-0.9) 0.510^3/ul (0.3-0.9) Eosinophils # 0.010^3/ul (0.0-0.5) 0.010^3/ul (0.0-0.5) 0.010^3/ul (0.0-0.5) 0.010^3/ul (0.0-0.5) Basophils # 0.010^3/ul (0.0-0.1) 0.010^3/ul (0.0-0.1) 0.010^3/ul (0.0-0.1) 0.010^3/ul (0.0-0.1) Nucleated Red Blood Cells # 0.010^3/ul (0.0-0.0) 0.010^3/ul (0.0-0.0) 0.010^3/ul (0.0-0.0) 0.010^3/ul (0.0-0.0) Chemistry Test 04/26/17 13:07 04/26/17 18:03 04/27/17 00:32 04/27/17 06:39 Magnesium Level 5.5mg/dl (1.7-2.5) *H 5.7mg/dl (1.7-2.5) *H 5.9mg/dl (1.7-2.5) *H 6.0mg/dl (1.7-2.5) *H Test 04/27/17 18:10 04/28/17 17:09 Magnesium Level 3.0mg/dl (1.7-2.5) #H Sodium Level 136mmol/L (135-144) Potassium Level 3.7mmol/L (3.5-5.1) Chloride Level 111mmol/L (97-110) H Carbon Dioxide Level 24mmol/L (21-31) Anion Gap 5 (8-16) L Blood Urea Nitrogen 6mg/dl (7-20) L Creatinine 0.47mg/dl (0.44-1.00) Glucose Level 116mg/dl (70-220) Hemoglobin A1c 5.3% (0-5.9) Calcium Level 8.1mg/dl (8.4-10.2) L Total Bilirubin 0.1mg/dl (0.2-1.3) L Direct Bilirubin 0.00mg/dl (0.00-0.20) Indirect Bilirubin 0.1mg/dl (0-1.1) Aspartate Amino Transf (AST/SGOT) 26IU/L (15-46) Alanine Aminotransferase (ALT/SGPT) 33IU/L (13-69) Alkaline Phosphatase 60IU/L (42-121) Total Protein 5.5g/dl (6.1-8.1) L Albumin 2.5g/dl (3.3-4.9) L Globulin 3.00g/dl (1.3-3.2) Albumin/Globulin Ratio 0.83 OB Assessment/Plan Other Assessment: IUP at 29 weeks and 2 days Bilobed placenta with posterior marginal previa Admitted due to vaginal bleeding Status post magnesium and 2 doses of steroid. Currently more than 48 hours after last dose of steroid. Off of magnesium. Status post perinatology consultation. Currently stable. Rh+ Anemia, S./p tranfusion of 2 units of blood Stable Asymptomatic DYLON ELLIS MD Apr 29, 2017 09:31
[2017-04-29] MEDS: MAGNESIUM SULFATE 20 GM/500 ML 500 ML IV SCH ×2 (10:58→21:07)
[2017-04-29] MEDS ORDERED: MAGNESIUM SULFATE 4 GM/100 ML 100 ML IVPB ONE (11:00)
--- NOTE | 2017-04-29 16:45 | CONS ---
DATE OF ADMISSION: 04/25/2017 DATE OF CONSULTATION: 04/29/2017 HISTORY OF PRESENT ILLNESS: The patient is a 36-year-old who presented 2 days ago with complaint of vaginal bleeding. She has since twice during the hospital stay. She was placed on magnesium s ulfate, given betamethasone and so far she has been stable. Today, she started having some uterine cramping and magnesium sulfate was restarted since she has no evidence of bleeding. She received 2 units of packed red blood cells because 2 days ago since her blood count was decrease d to about 77. Since then she has been stable. REVIEW OF SYSTEMS: Negative. PHYSICAL EXAMINATION: VITAL SIGNS: Stable. Physical exam deferred. heart tone is reassuring for the gestational a ge, contractions. Positive irritability. IMPRESSION: Intrauterine at 29 weeks and 3 days, placenta previa, and so far twice bleedi ng. Currently stable for bleeding but perri so she is placed on magnesium sulfate. RECOMMENDATIONS: Continue with the magnesium sulfate for at the most 48 hours, then discontinue. S he is not a candidate for Procardia or Indocin. Also if she has some reaction to magnesium sulfate, then it should be stopped and this is because she continues to contract and then delivery . She is also to be delivered if she has 1 other episode of bleeding. In-house management is recommended since she has had 2 episodes of heavy bleeding which required tra nsfusion. NICU consult. Dictated By: JOSUE BURNS/MOO Conf#: [id number] DID#: [id number]
[2017-04-30] MEDS: LACTATED RINGER'S 1,000 ML IV SCH ×2 (06:50→17:55)
[2017-04-30] MEDS: MAGNESIUM SULFATE 20 GM/500 ML 500 ML IV SCH ×2 (06:52→16:51)
[2017-04-30] MEDS: PRENATAL VITAMIN PO SCH (10:18)
[2017-04-30] MEDS: DOCUSATE SODIUM 100 MG CAP PO SCH ×2 (10:18→21:50)
--- NOTE | 2017-04-30 14:25 | QN ---
Documentation Comment DOING WELL VSS NO BLEEDING TRACING CATEGORY 1 CPM ANTHONY GOMEZ MD Apr 30, 2017 14:25
[2017-04-30 17:34] LABS: ADD UMIC YES; UR ASCORBIC ACID NEGATIVE (NEGATIVE); UR BACTERIA MODERATE /HPF (NONE SEEN); UR BILIRUBIN (Dip) NEGATIVE (NEGATIVE); UR BLOOD (Dip) 1+ mg/dL (NEGATIVE); UR CLARITY SLIGHTLY CLOUDY (CLEAR); UR COLOR YELLOW (YELLOW); UR GLUCOSE (Dip) 1+ mg/dL (NEGATIVE); UR KETONES (Dip) NEGATIVE (NEGATIVE); UR LEUKOCYTE ESTERASE (Dip) NEGATIVE Leu/ul (NEGATIVE); UR MUCUS FEW /HPF (NONE SEEN); UR NITRITE (Dip) NEGATIVE (NEGATIVE); UR RBC 1 /HPF (0-5); UR SPECIFIC GRAVITY (Dip) 1.009 (1.003-1.030); UR TOTAL PROTEIN (Dip) NEGATIVE (NEGATIVE); UR UROBILINOGEN (Dip) NEGATIVE (NEGATIVE)
--- NOTE | 2017-05-01 00:57 | PN ---
Date/Time of Note Date/Time of Note DATE: 05/01/17 TIME: 00:50 OB Subjective Subjective Subjective no vaginal bleeding no c/o uterine contractions OB Objective Objective Objective EFM no uterine contractions no vaginal bleeding noted OB Assessment/Plan Other Assessment: IUP 29w4d PTL marginal previa S/P bmzx2 last dose 04/26/1546 on tocolysis with MgSo4 Other plan: continue current management MADHURI EVANS MD May 01, 2017 00:57
[2017-05-01] MEDS: MAGNESIUM SULFATE 20 GM/500 ML 500 ML IV SCH ×2 (02:37→12:13)
[2017-05-01] MEDS: LACTATED RINGER'S 1,000 ML IV SCH ×2 (06:11→20:16)
[2017-05-01] MEDS: DOCUSATE SODIUM 100 MG CAP PO SCH ×2 (10:13→20:15)
[2017-05-01] MEDS: ACETAMINOPHEN 325 MG TAB PO PRN (10:13)
[2017-05-01] MEDS: PRENATAL VITAMIN PO SCH (10:13)
--- NOTE | 2017-05-01 10:45 | QN ---
Documentation Comment 29+wks GA with labor and low lyring placenta NST reassuring [place] No Ctxs Pelvi Deffered --->close obsevation --->continue the same management JOVANY ARECHIGA M.D. May 01, 2017 10:45
[2017-05-02] MEDS: ACETAMINOPHEN 325 MG TAB PO PRN ×2 (00:06→18:50)
[2017-05-02] MEDS ORDERED: BISACODYL 10 MG SUPP PR ONE (09:30)
[2017-05-02] MEDS: LACTATED RINGER'S 1,000 ML IV SCH (09:51)
[2017-05-02] MEDS: AMPICILLIN 2 GM/NS (PMX) 100 ML IVPB SCH ×3 (09:52→21:04)
[2017-05-02] MEDS: DOCUSATE SODIUM 100 MG CAP PO SCH ×2 (10:38→21:04)
[2017-05-02] MEDS: PRENATAL VITAMIN PO SCH (10:38)
--- NOTE | 2017-05-02 13:28 | QN ---
Documentation Comment doing well vss no bleeding tracing category 1 ampicillin for leg ulcer ANTHONY GOMEZ MD May 02, 2017 13:28
[2017-05-02 14:21] LABS: BASOPHILS % 0.2 % (0.0-2.0); EOSINOPHILS # 0.2 10^3/ul (0.0-0.5); EOSINOPHILS % 2.6 % (0.0-7.0); HEMATOCRIT 31.9 % (37.0-47.0); HEMOGLOBIN 9.9 g/dl (12.0-16.0); LYMPHOCYTES # 2.2 10^3/ul (0.8-2.9); LYMPHOCYTES % 25.9 % (15.0-51.0); MEAN CORPUSCULAR VOLUME 87.2 fl (82.0-101.0); MEAN PLATELET VOLUME 10.5 fl (7.4-10.4); MONOCYTE # 0.5 10^3/ul (0.3-0.9); MONOCYTES % 6.3 % (0.0-11.0); NEUTROPHIL # 5.4 10^3/ul (1.6-7.5); NEUTROPHILS % 64.6 % (39.0-77.0); PLATELET COUNT 155 10^3/UL (140-415); RED BLOOD COUNT 3.66 10^6/ul (4.20-5.40); RED CELL DISTRIBUTION WIDTH 14.3 % (11.5-14.5); WHITE BLOOD COUNT 8.4 10^3/ul (4.8-10.8)
[2017-05-03] MEDS ORDERED: LACTATED RINGER'S 1,000 ML IV SCH ×2 (02:00→18:15)
[2017-05-03] MEDS: AMPICILLIN 2 GM/NS (PMX) 100 ML IVPB SCH ×3 (02:46→15:44)
[2017-05-03] MEDS: ACETAMINOPHEN 325 MG TAB PO PRN ×2 (02:46→14:39)
[2017-05-03] MEDS: DOCUSATE SODIUM 100 MG CAP PO SCH (09:21)
[2017-05-03] MEDS: PRENATAL VITAMIN PO SCH (09:21)
[2017-05-03] MEDS ORDERED: MAGNESIUM SULFATE 2 GM/50 ML 50 ML IVPB ONE (17:00)
--- NOTE | 2017-05-03 17:11 | QN ---
Documentation Comment iup 29+ previa stable continue care. ALINE SHELTON MD May 03, 2017 17:11
[2017-05-03] MEDS ORDERED: MAGNESIUM SULFATE 20 GM/500 ML 500 ML IV SCH (18:00)
[2017-05-03] MEDS ORDERED: ONDANSETRON 4 MG INJ IV STA (18:27)
[2017-05-03] MEDS ORDERED: CITRIC ACID/NA CITRATE 30 ML CUP ONE (18:27)
[2017-05-03] MEDS ORDERED: ONDANSETRON 4 MG INJ ONE (18:28)
[2017-05-03] MEDS ORDERED: METHYLERGONOVINE 0.2 MG INJ IM PRN ×2 (18:30→23:00)
[2017-05-03] MEDS ORDERED: CEFAZOLIN 2 GM/50 ML (PMX) 50 ML IV SCH (18:30)
[2017-05-03] MEDS ORDERED: OXYTOCIN 30 UNITS/LR 500 ML IV SCH (18:30)
[2017-05-03] MEDS ORDERED: OXYTOCIN 30 UNITS/LR 500 ML IV PRN ×2 (18:30→23:00)
[2017-05-03] MEDS ORDERED: CITRIC ACID/NA CITRATE 30 ML CUP PO ONE (18:30)
[2017-05-03] MEDS ORDERED: CARBOPROST 250 MCG INJ IM PRN ×2 (18:30→23:00)
[2017-05-03] MEDS ORDERED: MISOPROSTOL 200 MCG TAB PR PRN ×2 (18:30→23:00)
[2017-05-03] MEDS ORDERED: METOCLOPRAMIDE 10 MG INJ ONE (18:51)
[2017-05-03] MEDS ORDERED: KETOROLAC 30 MG INJ ONE (18:51)
[2017-05-03] MEDS ORDERED: PHENYLephrine (100 MCG/ML) 5ML SYG ONE ×2 (18:51→19:25)
[2017-05-03] MEDS ORDERED: OXYTOCIN 10 UNIT INJ ONE (18:51)
[2017-05-03] MEDS ORDERED: morphine SULFATE/PF (10 MG/10 ML) INJ ONE (18:51)
[2017-05-03] MEDS ORDERED: DEXAMETHASONE 4 MG/ML 1 ML INJ ONE (18:51)
--- NOTE | 2017-05-03 19:01 | QN ---
Documentation Comment SROM CLEAR CTX SPOKE WITH DR. LUIS. RECOMMEND C/S NOW SPOKE WITH PATIENT AND AGREES ANTHONY GOMEZ MD May 03, 2017 19:01
[2017-05-03] MEDS ORDERED: ACETAMINOPHEN 500 MG TAB PO PRN (19:30)
[2017-05-03] MEDS ORDERED: morphine 4 MG/ML VIAL IV PRN (19:30)
[2017-05-03] MEDS ORDERED: KETOROLAC 30 MG INJ IV PRN (19:30)
[2017-05-03] MEDS ORDERED: HYDROCODONE/APAP (5/325) TAB PO PRN (19:30)
[2017-05-03] MEDS ORDERED: NALOXONE (0.4 MG/ML) INJ IV PRN (19:30)
[2017-05-03] MEDS ORDERED: DIPHENHYDRAMINE 50 MG INJ IV PRN (19:30)
[2017-05-03] MEDS ORDERED: NALBUPHINE HCL (10 MG/1 ML) INJ IV PRN (19:30)
[2017-05-03] MEDS ORDERED: ONDANSETRON 4 MG INJ IV PRN (19:30)
[2017-05-03] MEDS ORDERED: morphine 2 MG INJ IV PRN (19:30)
[2017-05-03] MEDS ORDERED: HYDROmorphONE 0.5 MG/0.5 ML SYG IV PRN ×2 (19:30)
[2017-05-03 20:36] LABS: BASOPHILS % 0.2 % (0.0-2.0); EOSINOPHILS # 0.3 10^3/ul (0.0-0.5); EOSINOPHILS % 2.4 % (0.0-7.0); HEMATOCRIT 31.6 % (37.0-47.0); HEMOGLOBIN 10.3 g/dl (12.0-16.0); LYMPHOCYTES # 2.1 10^3/ul (0.8-2.9); LYMPHOCYTES % 19.5 % (15.0-51.0); MEAN CORPUSCULAR HEMOGLOBIN 28.3 pg (29.0-33.0); MEAN CORPUSCULAR HGB CONC 32.6 g/dl (32.0-37.0); MEAN CORPUSCULAR VOLUME 86.8 fl (82.0-101.0); MEAN PLATELET VOLUME 9.7 fl (7.4-10.4); MONOCYTE # 0.6 10^3/ul (0.3-0.9); MONOCYTES % 5.6 % (0.0-11.0); NEUTROPHIL # 7.6 10^3/ul (1.6-7.5); NEUTROPHILS % 71.6 % (39.0-77.0); PLATELET COUNT 133 10^3/UL (140-415); RED BLOOD COUNT 3.64 10^6/ul (4.20-5.40); RED CELL DISTRIBUTION WIDTH 13.9 % (11.5-14.5); WHITE BLOOD COUNT 10.6 10^3/ul (4.8-10.8)
[2017-05-03 20:55] LABS: INR 0.96; PROTIME 12.8 Sec (12.2-14.2)
[2017-05-03 20:56] LABS: PARTIAL THROMBOPLASTIN TIME 25.2 Sec (25.0-35.0)
[2017-05-03] MEDS: OXYTOCIN 30 UNITS/LR 500 ML IV SCH (22:46)
[2017-05-03] MEDS ORDERED: NACL 0.9% 3 ML SYG IV SCH (23:00)
[2017-05-03] MEDS ORDERED: NA PHOSPHATE/BIPHOS 133 ML ENEMA PR PRN (23:00)
[2017-05-03] MEDS ORDERED: LANOLIN 7 GM TUBE TOP PRN (23:00)
[2017-05-03 23:05] VITALS: BP 118/64; PULSE 76; RESP 18
[2017-05-04] MEDS: LACTATED RINGER'S 1,000 ML IV SCH ×4 (01:33→22:46)
--- NOTE | 2017-05-04 02:20 | PN ---
DATE: 05/03/2017 I received a call from the nurse, Kika Patrick, about the patient with previa, that she is ruptured . This patient has had 3 previous bleedings to the point of requiring blood transfusion and current ly with a rupture of the membrane, delivery is recommended as soon as possible, and please essential ly deliver as soon as humanly possible. I spoke to Dr. Braxton who is OB, and also spoke to the ana nurse on labor and delivery, Nisa. Dictated By: JOSUE BURNS/MOO Conf#: [id number] DID#: [id number]
[2017-05-04] MEDS: OXYTOCIN 30 UNITS/LR 500 ML IV SCH (02:46)
[2017-05-04 04:00] VITALS: BP 116/58; PULSE 84; RESP 84
[2017-05-04 07:20] VITALS: BP 126/68; PULSE 86; RESP 19
--- NOTE | 2017-05-04 08:19 | OPR ---
Operative Report Planned Procedure Procedure date May 04, 2017 Procedure(s) repeat c/s Performed by see signature line Assisting provider: ALINE SHELTON MD Anesthesia Type: spinal Procedure Description Under satisfactory spinal anesthesia, the patient was prepped and draped and placed in a supine position, tilted to the left. Pfannenstiel incision was made , carried through the subcutaneous tissue. Bleeders brought under control with electrocautery. Fascia incised to the length of the incision. Rectus muscles from the fascia, divided midline. Peritoneum exposed, entered through a transverse incision. Exploration of abdomen revealed gravid uterus. Bladder flap was developed. Transverse incision was made in the lower segment of the uterus. Amniotic sac ruptured. [clear] amniotic fluid noted. [] Nasal oropharyngeal suction was performed. The baby was handed to the team for immediate attention. The placenta was delivered manually intact. Uterine cavity was cleaned with wet sponge and drainage established. Uterus closed in 2 layers using [one monocryl ] in continuous fashion. Peritoneal cavity irrigated with warm saline. Sponge, needle and instrument count reported to be correct. Abdominal peritoneum closed with [] continuously. Rectus muscle approximated with []. Fascia closed with []one monocryl, and skin closed with yanelis. Estimated blood loss []700mL. Post-Procedure Findings: Live Baby [], Apgars [] and [], weight [], position [], [] presentation []cord. Estimated blood loss: other (700) Specimen(s): no Grafts/Implants: no Complication(s): no Pt Condition post procedure: stable Physician Certification I, the undersigned physician, hereby certify that I have discussed the procedure described in this consent form with this patient (or the patient's legal paper sales representative), including: * The risk and benefits of the procedure; * Any adverse reactions that may reasonably be expected to occur; * Any alternative efficacious methods of treatment which may be medically viable ; * The potential problems that may occur during recuperation; * Potential for blood transfusion and associated risks/benefits; and * Any research or economic interest I may have regarding this treatment. I further certify that the patient/legally responsible person was encouraged to ask question and that all questions were answered. ANTHONY GOMEZ MD May 04, 2017 08:19
[2017-05-04 10:30] LABS: BASOPHILS % 0.1 % (0.0-2.0); EOSINOPHILS % 0.4 % (0.0-7.0); HEMOGLOBIN 8.9 g/dl (12.0-16.0); LYMPHOCYTES # 1.8 10^3/ul (0.8-2.9); LYMPHOCYTES % 18.6 % (15.0-51.0); MEAN CORPUSCULAR HEMOGLOBIN 27.1 pg (29.0-33.0); MEAN CORPUSCULAR HGB CONC 31.8 g/dl (32.0-37.0); MEAN CORPUSCULAR VOLUME 85.4 fl (82.0-101.0); MEAN PLATELET VOLUME 10.3 fl (7.4-10.4); MONOCYTE # 0.8 10^3/ul (0.3-0.9); MONOCYTES % 7.9 % (0.0-11.0); NEUTROPHIL # 7.1 10^3/ul (1.6-7.5); NEUTROPHILS % 72.5 % (39.0-77.0); PLATELET COUNT 139 10^3/UL (140-415); RED BLOOD COUNT 3.28 10^6/ul (4.20-5.40); RED CELL DISTRIBUTION WIDTH 13.8 % (11.5-14.5); WHITE BLOOD COUNT 9.9 10^3/ul (4.8-10.8)
[2017-05-04 12:00] VITALS: BP 107/58; PULSE 80; RESP 18
[2017-05-04 16:00] VITALS: BP 96/51; PULSE 78; RESP 19
[2017-05-04] MEDS: HYDROCODONE/APAP (5/325) TAB PO PRN (18:09)
[2017-05-04 20:00] VITALS: BP 103/69; PULSE 79; RESP 18
[2017-05-04] MEDS: IBUPROFEN 800 MG TAB PO SCH (21:51)
[2017-05-05] MEDS: HYDROCODONE/APAP (5/325) TAB PO PRN ×4 (00:26→17:37)
[2017-05-05 04:00] VITALS: BP 114/58; PULSE 68; RESP 19
[2017-05-05] MEDS: IBUPROFEN 800 MG TAB PO SCH ×3 (05:40→22:03)
[2017-05-05] MEDS: LACTATED RINGER'S 1,000 ML IV SCH (06:46)
[2017-05-05 08:10] VITALS: BP 105/60; PULSE 67; RESP 17
--- NOTE | 2017-05-05 09:19 | QN ---
Documentation Comment doing well vss abd is distended ducolax supp oob and walking ANTHONY GOMEZ MD May 05, 2017 09:19
--- NOTE | 2017-05-05 09:20 | DS ---
Date/Time of Note Date/Time of Note DATE: 05/05/17 TIME: 09:19 Discharge Summary Admission/Discharge Info Admit Date/Time Apr 25, 2017 at 13:30 Discharge Date/Time Discharge Diagnosis 29 weeks with SROM and labor and marginal previa Patient Condition: Stable Procedures repeat c/s Hospital Course unremarkable Home Meds Reported Medications Multivit/Min/Fol Ac/Iron/Pren* ( S*) 1 Tab Tab, 1 TAB PO DAILY, TAB 03/01/17 Primary Care Provider Lesley Gottlieb DO Pending Labs Laboratory Tests Test 05/04/17 10:00 White Blood Count 9.910^3/ul (4.8-10.8) Red Blood Count 3.2810^6/ul (4.20-5.40) Hemoglobin 8.9g/dl (12.0-16.0) Hematocrit 28.0% (37.0-47.0) Mean Corpuscular Volume 85.4fl (82.0-101.0) Mean Corpuscular Hemoglobin 27.1pg (29.0-33.0) Mean Corpuscular Hemoglobin Concent 31.8g/dl (32.0-37.0) Red Cell Distribution Width 13.8% (11.5-14.5) Platelet Count 43272^3/UL (140-415) Mean Platelet Volume 10.3fl (7.4-10.4) Neutrophils % 72.5% (39.0-77.0) Lymphocytes % 18.6% (15.0-51.0) Monocytes % 7.9% (0.0-11.0) Eosinophils % 0.4% (0.0-7.0) Basophils % 0.1% (0.0-2.0) Nucleated Red Blood Cells % 0.0/100WBC (0.0-0.0) Neutrophils # 7.110^3/ul (1.6-7.5) Lymphocytes # 1.810^3/ul (0.8-2.9) Monocytes # 0.810^3/ul (0.3-0.9) Eosinophils # 0.010^3/ul (0.0-0.5) Basophils # 0.010^3/ul (0.0-0.1) Nucleated Red Blood Cells # 0.010^3/ul (0.0-0.0) Fibrinogen 427.0mg/dl (207-461) ANTHONY GOMEZ MD May 05, 2017 09:20
--- NOTE | 2017-05-05 09:21 | PD.PPDC ---
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
[2017-05-05] MEDS ORDERED: INFLUENZA VIRUS VACCINE 0.5 ML SYG IM* ONE (12:00)
[2017-05-05 16:15] VITALS: BP 119/58; PULSE 76; RESP 18
[2017-05-05 19:55] VITALS: BP 108/70; PULSE 75; RESP 18
[2017-05-06] MEDS: HYDROCODONE/APAP (5/325) TAB PO PRN ×3 (00:24→14:42)
[2017-05-06 05:20] VITALS: BP 121/72; PULSE 73; RESP 18
[2017-05-06] MEDS: IBUPROFEN 800 MG TAB PO SCH ×2 (06:21→13:13)
[2017-05-06 08:00] VITALS: BP 96/54; PULSE 70; RESP 18
[2017-05-06] MEDS ORDERED: DIPHTH/TET/ACEL PERTUSS (ADULT) 0.5 ML VIAL IM* ONE (09:00)
[2017-05-06] MEDS ORDERED: MEASLES,MUMPS,RUBELLA VACCINE INJ SC* ONE (09:00)
[2017-05-06 16:00] VITALS: BP 112/56; PULSE 76; RESP 18
== END 2017-05-06 18:50 | disposition home or self-care (01) | DRG 765 ==
LOC: OBT 11:53 → L-D 11:54 → OBT 13:30 → L-D 15:13 → OBG 04-28 14:25 → L-D 05-03 18:26 → PP1 05-03 23:09
PROVIDERS: ADMIT Obstetrics & Gynecology; ATTEND Obstetrics & Gynecology
PROC: 30233N1 Transfusion of Nonautologous Red Blood Cells into Peripheral Vein, Percutaneous Approach (ICD-10-PCS; 2017-04-27)
PROC: 10D00Z1 Extraction of Products of Conception, Low, Open Approach (ICD-10-PCS; principal; 2017-05-04)
DX: O44.33 Partial placenta previa with hemorrhage, third trimester (principal); O60.14X0 Preterm labor third trimester with preterm delivery third trimester, not applicable or unspecified; Z37.0 Single live birth; Z3A.29 29 weeks gestation of pregnancy
CPT/HCPCS: 36430; 76815; 76817; 76818; 80053; 80307; 81001; 83036; 83735; 84112; 85025; 85384; 85610; 85730; 86592; 86850; 86900; 86901; 86920; 87086; 87255; 87340; 88307; 90686; 90715; 94760; 99464; G0463; J0290; J0690; J0702; J1100; J1200; J1885; J2210; J2274; J2370; J2405; J2590; J2765; J3475; J7030; J7120; J7121; P9016